=== PATIENT | female | born 1940 | race Caucasian/White ===

== ENCOUNTER 2020-08-06 13:47 | Observation (INO) | payer BC, MEDICARE ==
[2020-08-06] MEDS ORDERED: FUROSEMIDE 10 MG/ML 4 ML VIAL IV STA (14:26)
--- NOTE | 2020-08-06 14:33 | ED ---
General Adult HPI - General Chief complaint: Shortness of Breath Stated complaint: Dyspnea Time Seen by Provider: 08/06/20 14:09 Source: patient, RN notes reviewed Mode of arrival: wheelchair Limitations: no limitations - History of Present Illness Initial comments: patient is a pleasant 80-year-old female presenting to the emergency department with dyspnea. Patient went to her training lead today and was told she had congestive heart failure and to come to the emergency department. Patient does have some increased leg edema from chronic. No calf pain. Patient does have dyspnea aggressive over the past couple of months. Patient does have fatigue. Dyspnea worsens with exertion. No cough. No fever. No chest pain. Patient does also have orthopnea. - Related Data Home Medications Medication Instructions Recorded Confirmed Apixaban [Eliquis] 2.5 mg PO BID 08/06/20 08/06/20 Calcitriol [Rocaltrol] 0.25 mcg PO WE 08/06/20 08/06/20 Chlorthalidone 25 mg PO DAILY 08/06/20 08/06/20 Ergocalciferol (Vitamin D2) 50,000 unit PO WE 08/06/20 08/06/20 [Drisdol] Ipratropium/Albuter 20-100Mcg 1 puff INHALATION RT-QID 08/06/20 08/06/20 [Combivent Respimat 20-100Mcg Inhaler] Metoprolol Succinate [Toprol XL] 25 mg PO HS 08/06/20 08/06/20 Metoprolol Succinate [Toprol XL] 50 mg PO DAILY 08/06/20 08/06/20 PARoxetine [Paxil] 40 mg PO DAILY 08/06/20 08/06/20 Trospium Chloride 20 mg PO HS 08/06/20 08/06/20 amLODIPine [Norvasc] 5 mg PO BID 08/06/20 08/06/20 hydrALAZINE HCL 10 mg PO BID-W/MEALS 08/06/20 08/06/20 Allergies Allergy/AdvReac Type Severity Reaction Status Date / Time No Known Allergies Allergy Verified 08/06/20 15:39 Review of Systems ROS Statement: Those systems with pertinent positive or pertinent negative responses have been documented in the HPI. ROS Other: All systems not noted in ROS Statement are negative. Constitutional: Denies: fever Eyes: Denies: eye pain ENT: Denies: ear pain Respiratory: Reports: dyspnea. Denies: cough Cardiovascular: Denies: chest pain Endocrine: Reports: fatigue Gastrointestinal: Denies: abdominal pain Genitourinary: Denies: urgency Musculoskeletal: Denies: back pain Skin: Denies: rash Neurological: Denies: weakness Past Medical History Past Medical History: Atrial Flutter, Hypertension, Osteoarthritis (OA), Renal Disease Additional Past Medical History / Comment(s): stage 4 kidney disease. History of Any Multi-Drug Resistant Organisms: None Reported Past Surgical History: Section, Hysterectomy, Orthopedic Surgery Past Psychological History: No Psychological Hx Reported Smoking Status: Former smoker Past Alcohol Use History: None Reported Past Drug Use History: None Reported General Exam Limitations: no limitations General appearance: alert, in no apparent distress Head exam: Present: normocephalic Eye exam: Present: normal appearance Neck exam: Present: normal inspection Respiratory exam: Present: decreased breath sounds Cardiovascular Exam: Present: regular rate, irregular rhythm GI/Abdominal exam: Present: soft. Absent: tenderness Extremities exam: Present: pedal edema. Absent: calf tenderness Neurological exam: Present: alert Psychiatric exam: Present: normal affect, normal mood Skin exam: Present: normal color Course Vital Signs 08/06/20 08/06/20 13:58 15:05 Temperature 97.8 F Pulse Rate 109 H Pulse Rate [ 87 Diagnostic Assistant ] Respiratory 22 Rate Blood Pressure 160/86 O2 Sat by Pulse 97 Oximetry EKG Findings - EKG Comments: EKG Findings:: A. fib with a rate of 81. QRS 86. QT 354. QTC 411. Left axis. Septal Q waves. No acute ST change. Medical Decision Making - Medical Decision Making patient reevaluated and somewhat improved resting in bed. Patient is updated on results and plan. Case was discussed in detail with Dr. Pleitez, who will admit covered for Dr. Pisano. Patient states she also sees Dr. Hillman and Dr. escudero on. - Lab Data Result diagrams: 08/06/20 14:41 08/06/20 14:41 Lab Results 08/06/20 08/06/20 08/06/20 Range/Units 14:41 14:41 14:41 WBC 5.7 (3.8-10.6) k/uL RBC 3.73 L (3.80-5.40) m/uL Hgb 10.9 L (11.4-16.0) gm/dL Hct 33.8 L (34.0-46.0) % MCV 90.7 (80.0-100.0) fL MCH 29.3 (25.0-35.0) pg MCHC 32.3 (31.0-37.0) g/dL RDW 13.7 (11.5-15.5) % Plt Count 243 (150-450) k/uL MPV 8.1 Neutrophils % 63 % Lymphocytes % 24 % Monocytes % 7 % Eosinophils % 3 % Basophils % 1 % Neutrophils # 3.6 (1.3-7.7) k/uL Lymphocytes # 1.4 (1.0-4.8) k/uL Monocytes # 0.4 (0-1.0) k/uL Eosinophils # 0.2 (0-0.7) k/uL Basophils # 0.0 (0-0.2) k/uL PT 10.1 (9.0-12.0) sec INR 1.0 (<1.2) APTT 26.4 (22.0-30.0) sec Sodium 141 (137-145) mmol/L Potassium 4.1 (3.5-5.1) mmol/L Chloride 109 H (98-107) mmol/L Carbon Dioxide 24 (22-30) mmol/L Anion Gap 8 mmol/L BUN 39 H (7-17) mg/dL Creatinine 2.66 H (0.52-1.04) mg/dL Est GFR (CKD-EPI)AfAm 19 (>60 ml/min/1.73 sqM) Est GFR (CKD-EPI)NonAf 17 (>60 ml/min/1.73 sqM) Glucose 108 H (74-99) mg/dL Calcium 9.5 (8.4-10.2) mg/dL Total Bilirubin 0.6 (0.2-1.3) mg/dL AST 20 (14-36) U/L ALT 13 (4-34) U/L Alkaline Phosphatase 54 (38-126) U/L Troponin I (0.000-0.034) ng/mL NT-Pro-B Natriuret Pep pg/mL Total Protein 7.1 (6.3-8.2) g/dL Albumin 3.8 (3.5-5.0) g/dL 08/06/20 08/06/20 Range/Units 14:41 14:41 WBC (3.8-10.6) k/uL RBC (3.80-5.40) m/uL Hgb (11.4-16.0) gm/dL Hct (34.0-46.0) % MCV (80.0-100.0) fL MCH (25.0-35.0) pg MCHC (31.0-37.0) g/dL RDW (11.5-15.5) % Plt Count (150-450) k/uL MPV Neutrophils % % Lymphocytes % % Monocytes % % Eosinophils % % Basophils % % Neutrophils # (1.3-7.7) k/uL Lymphocytes # (1.0-4.8) k/uL Monocytes # (0-1.0) k/uL Eosinophils # (0-0.7) k/uL Basophils # (0-0.2) k/uL PT (9.0-12.0) sec INR (<1.2) APTT (22.0-30.0) sec Sodium (137-145) mmol/L Potassium (3.5-5.1) mmol/L Chloride (98-107) mmol/L Carbon Dioxide (22-30) mmol/L Anion Gap mmol/L BUN (7-17) mg/dL Creatinine (0.52-1.04) mg/dL Est GFR (CKD-EPI)AfAm (>60 ml/min/1.73 sqM) Est GFR (CKD-EPI)NonAf (>60 ml/min/1.73 sqM) Glucose (74-99) mg/dL Calcium (8.4-10.2) mg/dL Total Bilirubin (0.2-1.3) mg/dL AST (14-36) U/L ALT (4-34) U/L Alkaline Phosphatase (38-126) U/L Troponin I <0.012 (0.000-0.034) ng/mL NT-Pro-B Natriuret Pep 88400 pg/mL Total Protein (6.3-8.2) g/dL Albumin (3.5-5.0) g/dL - Radiology Data Radiology results: image reviewed (Chest x-ray shows mild cardiomegaly and eff usion, correlate for fluid overload.) Hilar soft tissue prominence.) Disposition Clinical Impression: Congestive heart failure Disposition: ADMITTED IP TO THIS HOSP Is patient prescribed a controlled substance at d/c from ED?: No Referrals: None,Stated [REFERRING] - 1-2 days Decision Time: 16:01
[2020-08-06 14:52] LABS: Basophils % (A) 1 %; Eosinophils # (A) 0.2 k/uL (0-0.7); Eosinophils % (A) 3 %; HCT 33.8 % (34.0-46.0); HGB 10.9 gm/dL (11.4-16.0); Lymphocytes # (A) 1.4 k/uL (1.0-4.8); Lymphocytes % (A) 24 %; MCH 29.3 pg (25.0-35.0); MCHC 32.3 g/dL (31.0-37.0); MCV 90.7 fL (80.0-100.0); Mean Platelet Volume 8.1; Monocytes # (A) 0.4 k/uL (0-1.0); Monocytes % (A) 7 %; Neutrophils # (A) 3.6 k/uL (1.3-7.7); Neutrophils % (A) 63 %; Platelet Count 243 k/uL (150-450); RBC 3.73 m/uL (3.80-5.40); RDW 13.7 % (11.5-15.5); WBC 5.7 k/uL (3.8-10.6)
[2020-08-06 15:08] LABS: Albumin 3.8 g/dL (3.5-5.0); Calcium 9.5 mg/dL (8.4-10.2); Potassium 4.1 mmol/L (3.5-5.1); Total Bilirubin 0.6 mg/dL (0.2-1.3); Total Protein 7.1 g/dL (6.3-8.2)
[2020-08-06 15:17] LABS: Partial Thromboplastin Time 26.4 sec (22.0-30.0); Prothrombin Time 10.1 sec (9.0-12.0)
--- NOTE | 2020-08-06 15:24 | XR ---
EXAMINATION TYPE: XR chest 2V DATE OF EXAM: 08/06/2020 COMPARISON: None HISTORY: 80 year-old female shortness of breath, difficulty breathing TECHNIQUE: PA and lateral views FINDINGS: Heart mildly enlarged. Consolidation/ectasia of the thoracic aorta. There is right perihilar prominen ce that could be projectional. Trace effusion on the right. IMPRESSION: 1. Mild cardiomegaly. Trace right effusion. Correlate for any fluid overload state. 2. Right perihilar soft tissue prominence. Large right main pulmonary artery (in the setting of pulmo nary arterial hypertension) or underlying mass/lymphadenopathy are differential considerations. Cross -sectional imaging can further assess.
[2020-08-06] MEDS ORDERED: NALOXONE 0.4 MG/ML 1 ML VIAL IV PRN (16:02)
[2020-08-06] MEDS ORDERED: ASPIRIN 325 MG TAB PO STA (16:04)
--- NOTE | 2020-08-06 16:37 | P.HPIM ---
History of Present Illness 74-year-old doesn't female was sent in the from cardiology's office for gram heart failure. Patient doesn't have diagnosis of heart failure in the past. Patient does have history of emphysema. Used to smoke more than 25 years ago. Was having progressive shortness of breath going on for gram few months denied any significant orthopnea proximal nocturnal dyspnea. Patient says she has chronic kidney disease stage 4-5 and supposed to be started on hemodialysis patient was also having progressive pitting pedal edema chest x-ray did show pulmonary edema with the elevated BNP of around 10,000 patient was started on IV Lasix 40 every 8 hourly may need to increase the dose to 60 every 8 considering her renal function. Patient was recently diagnosed with atrial fibrillation was started on low-dose of was in the beta daniel for that. Patient is presently rate controlled but in A. fib Review of Systems REVIEW OF SYSTEMS: CONSTITUTIONAL: No fever, no malaise, no fatigue. HEENT: No recent visual problems or hearing problems. Denied any sore throat. CARDIOVASCULAR: No chest pain, orthopnea, PND, no palpitations, no syncope. PULMONARY: no hemoptysis. GASTROINTESTINAL: No diarrhea, no nausea, no vomiting, no abdominal pain. NEUROLOGICAL: No headaches, no weakness, no numbness. HEMATOLOGICAL: Denies any bleeding or petechiae. GENITOURINARY: Denies any burning micturition, frequency, or urgency. MUSCULOSKELETAL/RHEUMATOLOGICAL: Denies any joint pain, swelling, or any muscle pain. ENDOCRINE: Denies any polyuria or polydipsia. The rest of the 14-point review of systems is negative. Past Medical History Past Medical History: Atrial Flutter, Hypertension, Osteoarthritis (OA), Renal Disease Additional Past Medical History / Comment(s): stage 4 kidney disease. History of Any Multi-Drug Resistant Organisms: None Reported Past Surgical History: Section, Hysterectomy, Orthopedic Surgery Past Psychological History: No Psychological Hx Reported Smoking Status: Former smoker Past Alcohol Use History: None Reported Past Drug Use History: None Reported Medications and Allergies Home Medications Medication Instructions Recorded Confirmed Type Apixaban [Eliquis] 2.5 mg PO BID 08/06/20 08/06/20 History Calcitriol [Rocaltrol] 0.25 mcg PO WE 08/06/20 08/06/20 History Chlorthalidone 25 mg PO DAILY 08/06/20 08/06/20 History Ergocalciferol (Vitamin D2) 50,000 unit PO WE 08/06/20 08/06/20 History [Drisdol] Ipratropium/Albuter 20-100Mcg 1 puff INHALATION RT-QID 08/06/20 08/06/20 History [Combivent Respimat 20-100Mcg Inhaler] Metoprolol Succinate [Toprol XL] 25 mg PO HS 08/06/20 08/06/20 History Metoprolol Succinate [Toprol XL] 50 mg PO DAILY 08/06/20 08/06/20 History PARoxetine [Paxil] 40 mg PO DAILY 08/06/20 08/06/20 History Trospium Chloride 20 mg PO HS 08/06/20 08/06/20 History amLODIPine [Norvasc] 5 mg PO BID 08/06/20 08/06/20 History hydrALAZINE HCL 10 mg PO BID-W/MEALS 08/06/20 08/06/20 History Allergies Allergy/AdvReac Type Severity Reaction Status Date / Time No Known Allergies Allergy Verified 08/06/20 15:39 Physical Exam Vitals: Vital Signs Temp Pulse Pulse Resp BP Pulse Ox 08/06/20 15:05 87 08/06/20 13:58 97.8 F 109 H 22 160/86 97 Intake and Output 08/06/20 08/06/20 08/06/20 06:59 14:59 22:59 Other: Weight 98.883 kg PHYSICAL EXAMINATION: GENERAL: The patient is alert and oriented x3, not in any acute distress. Well developed, well nourished. HEENT: Pupils are round and equally reacting to light. EOMI. No scleral icterus. No conjunctival pallor. Normocephalic, atraumatic. No pharyngeal erythema. No thyromegaly. CARDIOVASCULAR: S1 and S2 present. No murmurs, rubs, or gallops. Does have JVD PULMONARY: Chest is clear to auscultation, no wheezing or crackles. ABDOMEN: Soft, nontender, nondistended, normoactive bowel sounds. No palpable organomegaly. MUSCULOSKELETAL: No joint swelling or deformity. EXTREMITIES: No cyanosis, clubbing, does have 2+ pitting pedal edema NEUROLOGICAL: Gross neurological examination did not reveal any focal deficits. SKIN: No rashes. Results CBC & Chem 7: 08/06/20 14:41 08/06/20 14:41 Labs: Abnormal Lab Results - Last 24 Hours (Table) 08/06/20 08/06/20 Range/Units 14:41 14:41 RBC 3.73 L (3.80-5.40) m/uL Hgb 10.9 L (11.4-16.0) gm/dL Hct 33.8 L (34.0-46.0) % Chloride 109 H (98-107) mmol/L BUN 39 H (7-17) mg/dL Creatinine 2.66 H (0.52-1.04) mg/dL Glucose 108 H (74-99) mg/dL Assessment and Plan Plan: -Possible congestive heart failure: Ejection fraction is not known. E chocardiogram will be obtained. Patient is in acute exacerbation patient was started on Lasix and increase the dose of that Lasix. -Chronic kidney disease stage V, etiology is not known nephrology was consulted. -Atrial fibrillation/flutter patient appears to be in chronic A. fib and he with anticoagulation continue with beta daniel -Hypertension -Obesity -History of COPD doesn't appear to be in acute exacerbation at this time -Depression
[2020-08-06] MEDS: FUROSEMIDE 10 MG/ML 4 ML VIAL IV SCH ×2 (16:51→23:42)
--- NOTE | 2020-08-06 18:05 | CT ---
EXAMINATION TYPE: CT chest abdomen wo con DATE OF EXAM: 08/06/2020 COMPARISON: None HISTORY: hilar mass CT DLP: 616.1 mGycm Automated exposure control for dose reduction was used. Images were obtained from the thoracic inlet to the mid pelvis with no contrast. The lungs are clear of consolidation. There is no evidence of a pulmonary mass. There is mild subsegm ental atelectasis right lung base. There is no pleural effusion. Heart is enlarged. There is no peric ardial effusion. There are large pulmonary arteries. There is coronary artery calcification. The asce nding aorta measures 4.2 cm. Liver and spleen appear intact. Stomach is intact. The bile ducts are not dilated. There is 1.5 cm ga llstone. There is no evidence of pancreatic mass. Kidneys show no evidence of hydronephrosis there is however a possible 3 mm calculus at the left uret eropelvic junction. Ureters are not dilated. There is no retroperitoneal adenopathy. There is no asci charlie. There is no sign of a bowel obstruction. Appendix appears normal. There is hypertrophic spurring in the thoracic and lumbar spine. There is no significant compression deformity. There is thoracolumbar dextroscoliotic mild deformity. Sternum is intact. The ribs appear intact. Shoulder joints appear intact. Impression mild aneurysm of the ascending aorta. Large pulmonary arteries that account for the large size of the pulmonary kathe on the chest x-ray today. No hilar mass. Cardiomegaly. Atherosclerotic vascular disease. Possible calculus at the left ureteropelvic junction without evidence of obstruction of the left kidn ey. Mild subsegmental atelectasis at the lung bases.
[2020-08-06] MEDS: NITROGLYCERIN OINT 1 INCH/GM PACKET TOPICAL SCH ×2 (19:54→23:14)
[2020-08-06] MEDS: APIXABAN 2.5 MG TABLET PO SCH (19:59)
[2020-08-06] MEDS: amLODIPine 5 MG TAB PO SCH (20:00)
[2020-08-06] MEDS ORDERED: TROSPIUM CHLORIDE 20 MG TABLET PO SCH (21:00)
[2020-08-06] MEDS ORDERED: METOPROLOL SUCCINATE (ER) 25 MG TAB.ER.24H PO SCH (21:00)
[2020-08-06] MEDS: IPRATROPIUM-ALBUTEROL 3 ML NEB INHALATION SCH (21:40)
[2020-08-07 04:24] VITALS: TEMP 98
[2020-08-07] MEDS: IPRATROPIUM-ALBUTEROL 3 ML NEB INHALATION SCH ×2 (06:00→09:05)
--- NOTE | 2020-08-07 07:55 | P.CRDCN ---
History of Present Illness Consult date: 08/07/20 Chief complaint: Shortness of breath History of present illness: This is a very pleasant 80-year-old female patient who [facility] with a past medical history significant for diabetes and hypertension and end stage renal disease in process of having dialysis was admitted directly from the office for further evaluation and management of heart failure. The patient has been experiencing shortness of breath which has progressed for the last several days. Beside that she has progressive bilateral lower extremities edema. She gained weight but she is not quite sure home rebound she weight. No symptoms of orthopnea or paroxysmal sure not dyspnea. No dizziness or lightheadedness or any feeling of heart racing or fluttering or syncope. On examination she was found to have bilateral lower except is pitting edema. Subsequently she was sent to the hospital. The chest x-ray showed findings consistent with CHF. The BNP came in to be elevated at 12,000. The creatinine is elevated. The patient is known to have permanent atrial fibrillation and she was on oral anticoagulation. She is also on beta daniel. She was started on Lasix IV and she diuresed quite well overnight and the edema has improved and overall her shortness of breath has improved. No prior history of heart failure. No history of coronary artery disease. She is in process of getting an echocardiogram to establish LV function. At this point we'll continue the current medical regimen including the current dose of Lasix IV with continuous monitoring the kidney function and electrolytes and follow-up with the patient. Past Medical History Past Medical History: Atrial Flutter, COPD, Hypertension, Osteoarthritis (OA), Renal Disease Additional Past Medical History / Comment(s): stage 4 kidney disease. History of Any Multi-Drug Resistant Organisms: None Reported Past Surgical History: Section, Hysterectomy, Orthopedic Surgery Past Psychological History: No Psychological Hx Reported Smoking Status: Former smoker Past Alcohol Use History: None Reported Past Drug Use History: None Reported Medications and Allergies Home Medications Medication Instructions Recorded Confirmed Type Apixaban [Eliquis] 2.5 mg PO BID 08/06/20 08/06/20 History Calcitriol [Rocaltrol] 0.25 mcg PO WE 08/06/20 08/06/20 History Chlorthalidone 25 mg PO DAILY 08/06/20 08/06/20 History Ergocalciferol (Vitamin D2) 50,000 unit PO WE 08/06/20 08/06/20 History [Drisdol] Ipratropium/Albuter 20-100Mcg 1 puff INHALATION RT-QID 08/06/20 08/06/20 History [Combivent Respimat 20-100Mcg Inhaler] Metoprolol Succinate [Toprol XL] 25 mg PO HS 08/06/20 08/06/20 History Metoprolol Succinate [Toprol XL] 50 mg PO DAILY 08/06/20 08/06/20 History PARoxetine [Paxil] 40 mg PO DAILY 08/06/20 08/06/20 History Trospium Chloride 20 mg PO HS 08/06/20 08/06/20 History amLODIPine [Norvasc] 5 mg PO BID 08/06/20 08/06/20 History hydrALAZINE HCL 10 mg PO BID-W/MEALS 08/06/20 08/06/20 History Allergies Allergy/AdvReac Type Severity Reaction Status Date / Time No Known Allergies Allergy Verified 08/06/20 15:39 Physical Exam Vitals: Vital Signs Temp Pulse Pulse Resp BP BP Pulse Ox 08/07/20 03:30 98 F 92 17 124/75 95 08/06/20 19:50 97.8 F 81 20 124/80 94 L 08/06/20 17:16 97.7 F 88 16 134/77 96 08/06/20 15:05 87 08/06/20 13:58 97.8 F 109 H 22 160/86 97 Intake and Output 08/06/20 08/07/20 08/07/20 22:59 06:59 14:59 Other: Voiding Method Toilet Toilet # Voids 5 2 Weight 98.883 kg - Constitutional General appearance: no acute distress - Respiratory Respiratory: bilateral: diminished, rales - Cardiovascular Rhythm: irregularly irregular Heart sounds: normal: S1, S2 Results 08/06/20 14:41 08/06/20 14:41 Cardiac Enzymes 08/06/20 08/06/20 Range/Units 14:41 14:41 AST 20 (14-36) U/L Troponin I <0.012 (0.000-0.034) ng/mL Coagulation 08/06/20 Range/Units 14:41 PT 10.1 (9.0-12.0) sec APTT 26.4 (22.0-30.0) sec CBC 08/06/20 Range/Units 14:41 WBC 5.7 (3.8-10.6) k/uL RBC 3.73 L (3.80-5.40) m/uL Hgb 10.9 L (11.4-16.0) gm/dL Hct 33.8 L (34.0-46.0) % Plt Count 243 (150-450) k/uL Comprehensive Metabolic Panel 08/06/20 Range/Units 14:41 Sodium 141 (137-145) mmol/L Potassium 4.1 (3.5-5.1) mmol/L Chloride 109 H (98-107) mmol/L Carbon Dioxide 24 (22-30) mmol/L BUN 39 H (7-17) mg/dL Creatinine 2.66 H (0.52-1.04) mg/dL Glucose 108 H (74-99) mg/dL Calcium 9.5 (8.4-10.2) mg/dL AST 20 (14-36) U/L ALT 13 (4-34) U/L Alkaline Phosphatase 54 (38-126) U/L Total Protein 7.1 (6.3-8.2) g/dL Albumin 3.8 (3.5-5.0) g/dL Current Medications Generic Name Dose Route Start Last Admin Trade Name Freq PRN Reason Stop Dose Admin Albuterol/Ipratropium 3 ml 08/06/20 20:00 08/07/20 06:00 Ipratropium-Albuterol 3 Ml Neb INHALATION Not Given RT-Q6H [facility] Amlodipine Besylate 5 mg 08/06/20 21:00 08/06/20 20:00 Amlodipine 5 Mg Tab PO 5 mg BID RORY Administration Apixaban 2.5 mg 08/06/20 21:00 08/06/20 19:59 Apixaban 2.5 Mg Tablet PO 2.5 mg BID RORY Administration Aspirin 325 mg 08/07/20 09:00 Aspirin 325 Mg Tab PO DAILY RORY Calcitriol 0.25 mcg 08/11/20 09:00 Calcitriol 0.25 Mcg Cap PO WE RORY Ergocalciferol 50,000 unit 08/11/20 09:00 Ergocalciferol 50,000 Unit Cap PO WE RORY Furosemide 40 mg 08/06/20 16:15 08/06/20 23:42 Furosemide 10 Mg/Ml 4 Ml Vial IV 40 mg Q8H RORY Administration Metoprolol Succinate 25 mg 08/06/20 21:00 08/06/20 19:59 Metoprolol Succinate (Er) 25 Mg Tab.Er.24h PO 25 mg HS RORY Administration Metoprolol Succinate 50 mg 08/07/20 09:00 Metoprolol Succinate (Er) 50 Mg Tab.Er.24h PO DAILY RORY Naloxone HCl 0.2 mg 08/06/20 16:02 Naloxone 0.4 Mg/Ml 1 Ml Vial IV Q2M PRN Opioid Reversal Nitroglycerin 1 inch 08/06/20 18:00 08/06/20 23:14 Nitroglycerin Oint 1 Inch/Gm Packet TOPICAL Not Given QID RORY Paroxetine HCl 40 mg 08/07/20 09:00 Paroxetine 20 Mg Tab PO DAILY RORY Trospium 20 mg 08/06/20 21:00 08/06/20 19:59 Trospium Chloride 20 Mg Tablet PO 20 mg HS RORY Administration Intake and Output 08/06/20 08/07/20 08/07/20 22:59 06:59 14:59 Other: Voiding Method Toilet Toilet # Voids 5 2 Weight 98.883 kg 08/06/20 14:41 08/06/20 14:41 Assessment and Plan Assessment: Assessment #1 congestive heart failure exacerbation of unknown etiology, acute on chronic #2 permanent atrial fibrillation was controlled heart rate #3 end stage renal disease #4 hypertension #5 diabetes Plan #1 continue the current dose of Lasix IV #2 monitor the kidney function and electrolytes #3 follow-up on the echocardiogram #4 follow-up with the patient
[2020-08-07] MEDS: APIXABAN 2.5 MG TABLET PO SCH (08:37)
[2020-08-07] MEDS: FUROSEMIDE 10 MG/ML 4 ML VIAL IV SCH (08:37)
[2020-08-07] MEDS: amLODIPine 5 MG TAB PO SCH (08:37)
[2020-08-07] MEDS: NITROGLYCERIN OINT 1 INCH/GM PACKET TOPICAL SCH (08:37)
[2020-08-07 08:52] VITALS: BP 122/77; RESP 16
[2020-08-07] MEDS ORDERED: PARoxetine 20 MG TAB PO SCH (09:00)
[2020-08-07] MEDS ORDERED: METOPROLOL SUCCINATE (ER) 50 MG TAB.ER.24H PO SCH (09:00)
[2020-08-07] MEDS ORDERED: ASPIRIN 325 MG TAB PO SCH (09:00)
[2020-08-07 09:20] VITALS: PULSE 100
[2020-08-07 09:56] LABS: Calcium 9.5 mg/dL (8.4-10.2); Potassium 4.3 mmol/L (3.5-5.1)
[2020-08-07 12:21] VITALS: BMI 37.4
--- NOTE | 2020-08-07 12:59 | P.NPCON ---
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 At home she was on chlorthalidone 25 mg a day. Edema started to appear a few days ago. No chest pain no fever chills cough. No nausea vomiting appetite is great Has any dizziness sweating. The acidosis is significant for atrial fibrillation, COPD, history of cardiac stents or heart attack No history of strokes She was recently seen in our hospital and her creatinine has gone up into the 3 range. Workup here and shows a chest x-ray with some prominence over the right hilum a computed tomography scan was therefore done there is no congestive heart failure . There is a mild ascending aortic aneurysm. Further a left ureteropelvic junction 3 mm nonobstructing calculus is seen although patient has no history of kidney stones Past Medical History Past Medical History: Atrial Flutter, COPD, Hypertension, Osteoarthritis (OA), Renal Disease Additional Past Medical History / Comment(s): stage 4 kidney disease. History of Any Multi-Drug Resistant Organisms: None Reported Past Surgical History: Section, Hysterectomy, Orthopedic Surgery Past Psychological History: No Psychological Hx Reported Smoking Status: Former smoker Past Alcohol Use History: None Reported Past Drug Use History: None Reported Medications and Allergies Home Medications Medication Instructions Recorded Confirmed Type Apixaban [Eliquis] 2.5 mg PO BID 08/06/20 08/06/20 History Calcitriol [Rocaltrol] 0.25 mcg PO WE 08/06/20 08/06/20 History Chlorthalidone 25 mg PO DAILY 08/06/20 08/06/20 History Ergocalciferol (Vitamin D2) 50,000 unit PO WE 08/06/20 08/06/20 History [Drisdol] Ipratropium/Albuter 20-100Mcg 1 puff INHALATION RT-QID 08/06/20 08/06/20 History [Combivent Respimat 20-100Mcg Inhaler] Metoprolol Succinate [Toprol XL] 25 mg PO HS 08/06/20 08/06/20 History Metoprolol Succinate [Toprol XL] 50 mg PO DAILY 08/06/20 08/06/20 History PARoxetine [Paxil] 40 mg PO DAILY 08/06/20 08/06/20 History Trospium Chloride 20 mg PO HS 08/06/20 08/06/20 History amLODIPine [Norvasc] 5 mg PO BID 08/06/20 08/06/20 History hydrALAZINE HCL 10 mg PO BID-W/MEALS 08/06/20 08/06/20 History Allergies Allergy/AdvReac Type Severity Reaction Status Date / Time No Known Allergies Allergy Verified 08/06/20 15:39 Physical Exam Vitals: Vital Signs Temp Pulse Pulse Resp BP BP Pulse Ox 08/07/20 09:20 100 08/07/20 09:05 96 08/07/20 08:53 98 16 08/07/20 08:51 98 F 98 16 122/77 93 L 08/07/20 03:30 98 F 92 17 124/75 95 08/06/20 19:50 97.8 F 81 20 124/80 94 L 08/06/20 17:16 97.7 F 88 16 134/77 96 08/06/20 15:05 87 08/06/20 13:58 97.8 F 109 H 22 160/86 97 Intake and Output 08/06/20 08/07/20 08/07/20 22:59 06:59 14:59 Other: Voiding Method Toilet Toilet Toilet # Voids 5 2 2 Weight 98.883 kg 98.883 kg On examination she is awake alert oriented comfortable HEENT exam no JVP neck is supple no facial asymmetry Lungs are clear to auscultation good air entry bilaterally. Heart sounds are unremarkable no murmur rub gallop. She is in atrial fibrillation. Abdomen soft nontender Extremity exam was trace edema Neuro logically awake alert oriented Results - Lab Results Most recent lab results Calcium 9.5 mg/dL (8.4-10.2) 08/07/20 08:56 08/06/20 14:41 08/07/20 08:56 Assessment and Plan Assessment: Impression 1. Chronic kidney disease stage IV, nephrosclerosis. Creatinine is 2.7 to February for his 16 mL per minute. She has had higher creatinines in the office at 3.3 recently 2. Admitted with congestive heart failure although chest x-ray is not suggestive but she had edema and shortness of breath which is improved with diuretics. 3. History of hypertension controlled 4. Left ureteropelvic junction 3 mm nonobstructing and asymptomatic nephrolithiasis. Not known to be having any kidney stone the past 5. Small ascending aortic aneurysm based on CAT scan. Recommendation . 1. Start on Lasix 40 by mouth twice a day she can be discharged to be followed up in the office in 3-4 days with labs. 2. Discontinue the chlorthalidone as she is on Lasix.
--- NOTE | 2020-08-07 13:15 | P.DS ---
Providers Date of admission: 08/06/20 16:26 Attending physician: Adi Pleitez Consults: 08/06/20 16:02 Consult Physician Urgent Consulting Provider: Mary Baig Consult Reason/Comments: chf Do you want consulting provider notified?: Yes Consult Physician Urgent Consulting Provider: Angelique Hillman Consult Reason/Comments: crf Do you want consulting provider notified?: Yes Primary care physician: Keaton Servin [facility] Course: 74-year-old doesn't female was sent in the from cardiology's office for gram heart failure. Patient doesn't have diagnosis of heart failure in the past. Patient does have history of emphysema. Used to smoke more than 25 years ago. Was having progressive shortness of breath going on for gram few months denied any significant orthopnea proximal nocturnal dyspnea. Patient says she has chronic kidney disease stage 4-5 and supposed to be started on hemodialysis patient was also having progressive pitting pedal edema chest x-ray did show pulmonary edema with the elevated BNP of around 10,000 patient was started on IV Lasix 40 every 8 hourly may need to increase the dose to 60 every 8 considering her renal function. Patient was recently diagnosed with atrial fibrillation was started on low-dose of was in the beta daniel for that. Patient is presently rate controlled but in A. fib 08/07/2020 Patient's edema improved was pretty status improved although we do not have any cardiac exam available patient is not willing to stay in the hospital, wanted to go home today. Patient will be discharged on 40 mg of Lasix as recommended by nephrology nephrology will follow up with the patient on Sunday. PHYSICAL EXAMINATION: GENERAL: The patient is alert and oriented x3, not in any acute distress. Well developed, well nourished. HEENT: Pupils are round and equally reacting to light. EOMI. No scleral icterus. No conjunctival pallor. Normocephalic, atraumatic. No pharyngeal erythema. No thyromegaly. CARDIOVASCULAR: S1 and S2 present. No murmurs, rubs, or gallops. no JVD PULMONARY: Chest is clear to auscultation, no wheezing or crackles. ABDOMEN: Soft, nontender, nondistended, normoactive bowel sounds. No palpable organomegaly. MUSCULOSKELETAL: No joint swelling or deformity. EXTREMITIES: No cyanosis, clubbing, pedal edema improved significantly. NEUROLOGICAL: Gross neurological examination did not reveal any focal deficits. SKIN: No rashes. Assessment and Plan Plan: -Possible congestive heart failure: Ejection fraction is not known. Echocardiogram pending patient has improved the failure unknown whether patient has systolic dysfunction or diastolic dysfunction. patient will be discharged today on oral Lasix of 40 mg as mentioned above -Chronic kidney disease stage V, etiology is not known nephrologyrelated the patient. -Atrial fibrillation/flutter patient appears to be in chronic A. fib and he with anticoagulation continue with beta daniel -Hypertension -Obesity -History of COPD doesn't appear to be in acute exacerbation at this time -Depression Plan - Discharge Summary Discharge Rx Participant: No New Discharge Prescriptions: New Furosemide [Lasix] 40 mg PO DAILY #30 tablet Continue amLODIPine [Norvasc] 5 mg PO BID Ergocalciferol (Vitamin D2) [Drisdol] 50,000 unit PO WE Apixaban [Eliquis] 2.5 mg PO BID Trospium Chloride 20 mg PO HS PARoxetine [Paxil] 40 mg PO DAILY Ipratropium/Albuter 20-100Mcg [Combivent Respimat 20-100Mcg Inhaler] 1 puff INHALATION RT-QID Metoprolol Succinate [Toprol XL] 25 mg PO HS Metoprolol Succinate [Toprol XL] 50 mg PO DAILY Calcitriol [Rocaltrol] 0.25 mcg PO WE Discontinued Chlorthalidone 25 mg PO DAILY hydrALAZINE HCL 10 mg PO BID-W/MEALS Discharge Medication List Apixaban [Eliquis] 2.5 mg PO BID 08/06/20 [History] Calcitriol [Rocaltrol] 0.25 mcg PO WE 08/06/20 [History] Ergocalciferol (Vitamin D2) [Drisdol] 50,000 unit PO WE 08/06/20 [History] Ipratropium/Albuter 20-100Mcg [Combivent Respimat 20-100Mcg Inhaler] 1 puff INHALATION RT-QID 08/06/20 [History] Metoprolol Succinate [Toprol XL] 25 mg PO HS 08/06/20 [History] Metoprolol Succinate [Toprol XL] 50 mg PO DAILY 08/06/20 [History] PARoxetine [Paxil] 40 mg PO DAILY 08/06/20 [History] Trospium Chloride 20 mg PO HS 08/06/20 [History] amLODIPine [Norvasc] 5 mg PO BID 08/06/20 [History] Furosemide [Lasix] 40 mg PO DAILY #30 tablet 08/07/20 [Rx] Follow up Appointment(s)/Referral(s): Ratna Townsend MD [STAFF PHYSICIAN] - 3 Days Keaton Pisano MD [Primary Care Provider] - 3 Days Mary Baig MD [STAFF PHYSICIAN] - 1 Week Discharge Disposition: HOME SELF-CARE
--- NOTE | 2020-08-07 15:00 | ECHOF ---
Referral Reason:Congestive heart failure MEASUREMENTS -------- HEIGHT: 162.6 cm WEIGHT: 98.4 kg BP: 124/75 RVIDd: 3.2 cm (< 3.3) IVSd: 1.3 cm (0.6 - 1.1) LVIDd: 3.9 cm (3.9 - 5.3) LVPWd: 1.3 cm (0.6 - 1.1) IVSs: 1.6 cm LVIDs: 2.8 cm LVPWs: 1.6 cm LA Diam: 3.7 cm (2.7 - 3.8) Ao Diam: 3.4 cm (2.0 - 3.7) AV Cusp: 1.9 cm (1.5 - 2.6) MV EXCURSION: 11.800 mm (> 18.000) MV EF SLOPE: 71 mm/s (70 - 150) EPSS: 0.5 cm RAP: 15.00 mmHg RVSP: 41.19 mmHg FINDINGS -------- Atrial fibrillation. This was a technically adequate study. The left ventricular size is normal. There is mild concentric left ventricular hypertrophy. Overa ll left ventricular systolic function is low-normal with, an EF between 50 - 55 %. The right ventricle is normal in size. The left atrial size is normal. The right atrium is normal in size. Interatrial and interventricular septum intact. The aortic valve is trileaflet and appears structurally normal. Mild mitral annular calcification present. Mild mitral regurgitation is present. Mild tricuspid regurgitation present. There is mild pulmonary hypertension. The right ventricular systolic pressure, as measured by Doppler, is 41.19mmHg. The pulmonic valve was not well visualized. The aortic root size is normal. The inferior vena cava is dilated with poor inspiratory collapse which is consistent with estimated r ight atrial pressure of 15 mmHg. There is no pericardial effusion. CONCLUSIONS -------- 1. The left ventricular size is normal. 2. There is mild concentric left ventricular hypertrophy. 3. Overall left ventricular systolic function is low-normal with, an EF between 50 - 55 %. 4. Mild mitral annular calcification present. 5. Mild mitral regurgitation is present. 6. Mild tricuspid regurgitation present. 7. There is mild pulmonary hypertension. 8. The right ventricular systolic pressure, as measured by Doppler, is 41.19mmHg. 9. The inferior vena cava is dilated with poor inspiratory collapse which is consistent with estimate d right atrial pressure of 15 mmHg. 10. There is no pericardial effusion. GORE CUTTER: Ying Cool RDCS
[2020-08-07] MEDS ORDERED: FUROSEMIDE 10 MG/ML 10 ML VIAL IV SCH (16:00)
[2020-08-11] MEDS ORDERED: ERGOCALCIFEROL 50,000 UNIT CAP PO SCH (09:00)
== END 2020-08-07 14:40 | disposition home or self-care (01) ==
LOC: EC 13:47 → SUPCPDRO 13:47 → 3NCARDOBS 16:26
PROVIDERS: ADMIT Internal Medicine; ATTEND Internal Medicine
DX: J81.1 Chronic pulmonary edema (principal); I12.0 Hypertensive chronic kidney disease with stage 5 chronic kidney disease or end stage renal disease; N18.6 End stage renal disease; E11.22 Type 2 diabetes mellitus with diabetic chronic kidney disease; I48.21 Permanent atrial fibrillation; J43.9 Emphysema, unspecified; E87.0 Hyperosmolality and hypernatremia; I71.2 Thoracic aortic aneurysm, without rupture; N20.2 Calculus of kidney with calculus of ureter; F32.9 Major depressive disorder, single episode, unspecified; E66.9 Obesity, unspecified; Z68.37 Body mass index [BMI] 37.0-37.9, adult; I48.92 Unspecified atrial flutter; M19.90 Unspecified osteoarthritis, unspecified site; Z79.01 Long term (current) use of anticoagulants; Z79.899 Other long term (current) drug therapy; Z87.891 Personal history of nicotine dependence; Z90.710 Acquired absence of both cervix and uterus; I25.2 Old myocardial infarction; Z95.5 Presence of coronary angioplasty implant and graft; Z98.891 History of uterine scar from previous surgery; Z98.890 Other specified postprocedural states
CPT/HCPCS: 96376 ×2; 96374; 99285; 36415; 94640; 93005; 93306; 83880; 80053; 80048; 84484; 85025; 85610; 85730; 71046; 71250; 74150; G0378 ×2; J1940 ×2

== ENCOUNTER 2020-10-14 06:11 | Day surgery (SDC) | payer MEDICARE ==
[2020-10-08 15:37] VITALS: BMI 35.6
[~2020-10-14 06:11] MED LIST: LACTATED RINGERS 1,000 ML IV SCH; SODIUM CHLORIDE 0.9% 1,000 ML IV SCH
[2020-10-14 06:39] VITALS: TEMP 97.4
[2020-10-14] MEDS ORDERED: PROPOFOL 10 MG/ML 20 ML VIAL IV ONE (07:28)
[2020-10-14] MEDS ORDERED: TROSPIUM CHLORIDE 20 MG TABLET PO PRN (07:53)
[2020-10-14] MEDS ORDERED: SODIUM CHLORIDE 0.9% 1,000 ML IV SCH (08:00)
--- NOTE | 2020-10-14 08:16 | CE ---
CARDIAC ELECTROPHYSIOLOGY REPORT CARDIOVERSION PROCEDURE NOTE: INDICATION: Atrial fibrillation. PROCEDURE: After explaining the procedure to the patient, its risks and the complications and after obtaining sedated state per anesthesia department, a synchronized biphasic cardioversion using 200 joules was performed with presybeterian of normal sinus rhythm. There was no immediate complication. LISA / ELVIRA: [id number] /
[2020-10-14] MEDS ORDERED: METOPROLOL SUCCINATE (ER) 50 MG TAB.ER.24H PO SCH (09:00)
[2020-10-14] MEDS ORDERED: APIXABAN 2.5 MG TABLET PO SCH (09:00)
[2020-10-14] MEDS ORDERED: AMIODARONE 200 MG TAB PO SCH ×2 (09:00)
[2020-10-14] MEDS ORDERED: FUROSEMIDE 40 MG TAB PO SCH (09:00)
[2020-10-14] MEDS ORDERED: PARoxetine 20 MG TAB PO SCH (09:00)
[2020-10-14] MEDS ORDERED: amLODIPine 5 MG TAB PO SCH (09:00)
[2020-10-14 18:28] VITALS: BP 133/65; PULSE 62; RESP 18
--- NOTE | 2020-10-18 10:50 | CDI ---
Date: 10.18.20 CDS/Street Light Servicer Supervisor Name: Martine Knapp Phone: If any questions, call Rabia Rodriguez Mosquito Sprayer at [phone] Patient Name: Beronica Castillo Admit Date 10.14.20 Discharge Date: 10.14.20 ATTENTION: The [facility] Coding Staff appreciate your assistance in clarifying documentation. Please respond to the clarification below the line at the bottom and electronically sign. The [facility] Coding staff will review the response and follow-up if needed. Please note: Queries are made part of the Legal Health Record. If you have any questions, please contact the Mosquito Sprayer. Dear Dr. Baig In order to code to the greatest specificity and for the greatest reimbursement I need the following information: In your H&P, under the impression, you have documented CKD stage 4, but on the anesthesia record they have documented ESRD. Please clarify the stage of the CKD. stage 4 Thank you for your kind consideration. MTDD
[2020-10-20] MEDS ORDERED: ERGOCALCIFEROL 1,250 MCG (50,000 IU) CAPSULE PO SCH (09:00)
== END 2020-10-14 09:30 | disposition home or self-care (01) ==
LOC: CATHCVL 06:11
PROVIDERS: ATTEND Internal Medicine Interventional Cardiology
DX: I48.11 Longstanding persistent atrial fibrillation (principal); I13.0 Hypertensive heart and chronic kidney disease with heart failure and stage 1 through stage 4 chronic kidney disease, or unspecified chronic kidney disease; N18.4 Chronic kidney disease, stage 4 (severe); I50.9 Heart failure, unspecified; J44.9 Chronic obstructive pulmonary disease, unspecified; E66.9 Obesity, unspecified; I48.92 Unspecified atrial flutter; F32.9 Major depressive disorder, single episode, unspecified; Z98.890 Other specified postprocedural states; Z79.01 Long term (current) use of anticoagulants; Z79.899 Other long term (current) drug therapy; Z79.51 Long term (current) use of inhaled steroids; Z88.8 Allergy status to other drugs, medicaments and biological substances; Z88.1 Allergy status to other antibiotic agents; Z87.891 Personal history of nicotine dependence; Z68.34 Body mass index [BMI] 34.0-34.9, adult; Z90.710 Acquired absence of both cervix and uterus
CPT/HCPCS: 92960; J2704

== ENCOUNTER 2020-12-01 11:21 | Day surgery (SDC) | payer MEDICARE ==
[2020-11-29 13:27] VITALS: BMI 34.8
[~2020-12-01 11:21] MED LIST changes: +LIDOCAINE 1% (10MG/ML) FOR IV START INTRADERMA PRN; +ONDANSETRON 4 MG/2 ML VIAL IVP PRN; -SODIUM CHLORIDE 0.9% 1,000 ML IV SCH
[2020-12-01 11:57] VITALS: TEMP 97.9
[2020-12-01] MEDS ORDERED: SODIUM CHLORIDE 0.9% 1,000 ML IV ONE (12:16)
[2020-12-01] MEDS ORDERED: ONDANSETRON 4 MG/2 ML VIAL IVP ONE (12:17)
[2020-12-01] MEDS ORDERED: DEXAMETHASONE SOD PHOSPHATE 4 MG/ML 1 ML VIAL IV ONE (12:17)
[2020-12-01] MEDS ORDERED: fentaNYL (PF) 50 MCG/ML 2 ML AMP IV ONE (12:42)
[2020-12-01] MEDS ORDERED: MIDAZOLAM 2 MG/2 ML VIAL IV ONE (12:42)
--- NOTE | 2020-12-01 13:06 | P.ANPRN ---
Procedure Note - Anesthesia - Nerve Block Performed Left Supraclavicular Single Time Out Performed: Yes Date of Procedure: 12/01/20 Procedure Start Time: 12:41 Procedure Stop Time: 12:50 Location of Patient: PreOp Indication: Requested by Surgeon Specifically requested for management of pain by DrPatricia: Mamta Mariee Sedation Type: Sedate with meaningful contact maintained Preparation: Sterile Prep Position: Supine Needle Types: Pajunk Needle Gauge: 21 Ultrasound used to visualize needle placement: Yes Ultrasound used to observe medication spread: Yes Injectate: 0.5% Ropivacaine (see comment for volume) (20 ml plus dexamethason 4 mg) Blood Aspirated: No Pain Paresthesia on Injection Noted: No Resistance on Injection: Normal Image Stored and Saved: Yes Events: Uneventful and Well Tolerated
[2020-12-01] MEDS ORDERED: MIDAZOLAM 2 MG/2 ML VIAL ONE (13:17)
[2020-12-01] MEDS ORDERED: PROPOFOL 10 MG/ML 20 ML VIAL IV ONE (13:17)
[2020-12-01] MEDS ORDERED: KETAMINE 10 MG/ML 20 ML VIAL ONE (13:17)
[2020-12-01] MEDS ORDERED: fentaNYL (PF) 50 MCG/ML 2 ML AMP ONE (13:17)
[2020-12-01] MEDS ORDERED: HEPARIN SODIUM,PORCINE 5,000 UNIT/ML 1 ML VIAL ONE (13:17)
[2020-12-01] MEDS ORDERED: ROPIVACAINE 5 MG/ML 30 ML VIAL ONE (13:17)
[2020-12-01] MEDS ORDERED: DEXAMETHASONE SOD PHOSPHATE 4 MG/ML 1 ML VIAL ONE (13:17)
[2020-12-01] MEDS ORDERED: LIDOCAINE 1% INJ 10MG/ML (20 ML MDV) SQ ONE (13:41)
[2020-12-01] MEDS ORDERED: BUPIVACAINE (PF) 0.5% 30 ML VIAL SQ ONE (13:43)
[2020-12-01] MEDS ORDERED: HEPARIN SODIUM,PORCINE 2,000 UNIT in SODIUM CHLORIDE 0.9% 500 ML 500 ML IRRIGATION ONE (13:46)
[2020-12-01] MEDS ORDERED: ceFAZolin 2,000 MG in SODIUM CHLORIDE 0.9% 500 ML IRRIGATION ONE (14:04)
--- NOTE | 2020-12-01 14:46 | P.OP ---
Date of Procedure: 12/01/20 Description of Procedure: Preoperative diagnosis: Chronic kidney disease, need for dialysis Postoperative diagnosis: Same Procedure: [Left upper extremity brachial artery to cephalic vein fistula creation] Surgeon: Mamta Mariee D.O. Anesthesia: Regional block with monitored anesthesia care EBL: [20 mL] IV fluids: [See records] Urine output: [Not measured] Drains: [None] Complications: [None immediately apparent] Condition: [Stable to recovery] Operative indication and findings: [The patient is a 80-year-old female with chronic kidney disease he was recommended to have dialysis therefore an ultrasound was performed and she was found to have sizable cephalic and basilic veins bilaterally. A left upper extremity cephalic vein fistula creation was discussed. Risks and benefits were discussed. She seemingly understood and was willing to proceed as such. Procedure in detail: The patient was taken to the operative suite and placed in supine position. The left upper extremity is prepped and draped in standard fashion. A previous regional block had been performed. The ultrasound was uti lized and the brachial artery was identified as well as the cephalic vein and the median cubital vein. A transverse incision was made just proximal to the antecubital fossa. Incision was carried down to subcutaneous tissues and the level of the fascia. The fascia was opened and the brachial artery was identified. It was encircled proximally and distally. Attention was then turned towards the vein, the median cubital vein and area of the cephalic vein diving laterally was identified. It was dissected free. The patient was heparinized Proximally it was ligated with suture and transected. It was serially dilated and flushed with heparinized saline. An arteriotomy was created and enlarged with Jordan scissors. An anastomosis was created with 7-0 Prolene. Prior to completion of the anastomosis the vein was brought to back bleed. The artery was allowed to backbleeding. The anastomosis was completed. Flow was reinstituted through the artery flushing any debris through the fistula. Flow was resumed down through the distal artery. There was a multiphasic signals proximally and distally to the anastomosis at all sites as well as of the radial artery at the completion of the procedure. The area was irrigated. The subcutaneous tissues reapproximated with interrupted sutures of 3-0 Vicryl. The skin was reapproximated with running 4-0 Monocryl and skin glue was placed. The patient was allowed awaken from anesthesia and transferred to recovery in stable condition having tolerated the procedure well.] [] Plan - Discharge Summary Discharge Rx Participant: Yes New Discharge Prescriptions: No Action amLODIPine [Norvasc] 5 mg PO DAILY Ergocalciferol (Vitamin D2) [Drisdol (50,000 Iu)] 50,000 unit PO WE Apixaban [Eliquis] 2.5 mg PO BID Trospium Chloride 20 mg PO HS PRN PRN Reason: overactive bladder PARoxetine [Paxil] 40 mg PO DAILY Ipratropium/Albuter 20-100Mcg [Combivent Respimat 20-100Mcg Inhaler] 1 puff INHALATION RT-QID PRN PRN Reason: Dyspnea Metoprolol Succinate [Toprol XL] 50 mg PO DAILY Calcitriol [Rocaltrol] 0.25 mcg PO WE Furosemide [Lasix] 40 mg PO DAILY #30 tablet Discharge Medication List Apixaban [Eliquis] 2.5 mg PO BID 08/06/20 [History] Calcitriol [Rocaltrol] 0.25 mcg PO WE 08/06/20 [History] Ergocalciferol (Vitamin D2) [Drisdol (50,000 Iu)] 50,000 unit PO WE 08/06/20 [History] Ipratropium/Albuter 20-100Mcg [Combivent Respimat 20-100Mcg Inhaler] 1 puff INHALATION RT-QID PRN 08/06/20 [History] Metoprolol Succinate [Toprol XL] 50 mg PO DAILY 08/06/20 [History] PARoxetine [Paxil] 40 mg PO DAILY 08/06/20 [History] Trospium Chloride 20 mg PO HS PRN 08/06/20 [History] amLODIPine [Norvasc] 5 mg PO DAILY 08/06/20 [History] Furosemide [Lasix] 40 mg PO DAILY #30 tablet 08/07/20 [Rx] Patient Instructions/Handouts: *Surgery [facility] - (Anesthesia) Discharge Instructions Outpatient Surgery, Arteriovenous Fistula Creation for Hemodialysis (DC)
[2020-12-01 14:55] VITALS: PULSE 58
[2020-12-01 15:10] VITALS: BP 117/70; RESP 18
== END 2020-12-01 15:59 | disposition home or self-care (01) ==
LOC: OR 11:21
PROVIDERS: ATTEND Surgery
DX: I13.2 Hypertensive heart and chronic kidney disease with heart failure and with stage 5 chronic kidney disease, or end stage renal disease (principal); N18.6 End stage renal disease; I50.9 Heart failure, unspecified; Z99.2 Dependence on renal dialysis; I48.91 Unspecified atrial fibrillation; J43.9 Emphysema, unspecified; Z87.891 Personal history of nicotine dependence; Z98.891 History of uterine scar from previous surgery; Z98.890 Other specified postprocedural states; Z90.710 Acquired absence of both cervix and uterus; M19.90 Unspecified osteoarthritis, unspecified site; F41.9 Anxiety disorder, unspecified; Z79.899 Other long term (current) drug therapy; Z79.01 Long term (current) use of anticoagulants
CPT/HCPCS: 64415; 76942; 36821; J2250; J1644; J1100; J0690 ×2; J2405; J2001; J3010; J2795; J2704

== ENCOUNTER 2023-12-24 13:13 | Observation (INO) | payer MEDICARE ==
--- NOTE | 2023-12-24 13:33 | ED ---
SOB HPI - General Chief Complaint: Shortness of Breath Stated Complaint: MERI Time Seen by Provider: 12/24/23 13:32 Source: patient, family, RN notes reviewed Mode of arrival: wheelchair Limitations: no limitations - History of Present Illness Initial Comments: Patient is an 83-year-old female presenting to the ER with a chief complaint of shortness of breath. Patient sent here by PCP for IV Lasix. Patient states she has been having increasing shortness of breath since , about 4 days. She has a past medical history significant for atrial fibrillation for which she takes metoprolol and Eliquis. She states for the past 4 days she has been h aving an increase in exertional dyspnea, orthopnea and peripheral edema. No regular home O2 use. She states she normally sleeps on 1 pillow but for the past 4 days she has been having to sleep on 3. Patient is currently being worked up for dialysis as she has chronic kidney disease. Patient was seen by PCP earlier today and they were going to give her Lasix but they wanted to check renal function which brought her to the ER. Patient denies any chest pain, abdominal pain, constipation/diarrhea or urinary complaints. - Related Data Home Medications Medication Instructions Recorded Confirmed Apixaban [Eliquis] 2.5 mg PO BID 08/06/20 12/01/20 Ergocalciferol (Vitamin D2) 50,000 unit PO WE 08/06/20 12/01/20 [Drisdol (50,000 Iu)] Ipratropium/Albuter 20-100Mcg 1 puff INHALATION RT-QID PRN 08/06/20 12/01/20 [Combivent Respimat 20-100Mcg Inhaler] Metoprolol Succinate [Toprol XL] 50 mg PO DAILY 08/06/20 12/01/20 PARoxetine [Paxil] 40 mg PO DAILY 08/06/20 12/01/20 Trospium Chloride 20 mg PO HS PRN 08/06/20 12/01/20 amLODIPine [Norvasc] 5 mg PO DAILY 08/06/20 12/01/20 calcitrioL [Rocaltrol] 0.25 mcg PO WE 08/06/20 12/01/20 Previous Rx's Medication Instructions Recorded Furosemide [Lasix] 40 mg PO DAILY #30 tablet 08/07/20 HYDROcodone/APAP 5-325MG [[place] 1 tab PO Q4HR PRN 3 Days #18 tab 12/01/20 5-325] Allergies Allergy/AdvReac Type Severity Reaction Status Date / Time No Known Allergies Allergy Verified 12/24/23 13:25 Review of Systems ROS Statement: Those systems with pertinent positive or pertinent negative responses have been documented in the HPI. ROS Other: All systems not noted in ROS Statement are negative. Past Medical History Past Medical History: Atrial Flutter, Heart Failure, COPD, Hypertension, Osteoarthritis (OA), Renal Disease Additional Past Medical History / Comment(s): Stage 4 kidney disease, will be on dialysis in the future. Hx. of Atrial Flutter. History of Any Multi-Drug Resistant Organisms: None Reported Past Surgical History: Section, Hysterectomy, Orthopedic Surgery Additional Past Surgical History / Comment(s): cardioversion, arthroscopies ace knees Past Anesthesia/Blood Transfusion Reactions: No Reported Reaction Past Psychological History: Anxiety Smoking Status: Former smoker - Past Family History Brother(s) Family Medical History: Cancer General Exam - General Exam Comments Initial Comments: Visual Physical Exam Vital signs reviewed General: Well-appearing, nontoxic, no acute distress. Head: Normocephalic, atraumatic Eyes: PERRLA, EOMI ENT: Airway patent Chest: Nonlabored breathing Skin: No visual rash, normal skin tone Neuro: Alert and oriented 3 Musculoskeletal: No gross abnormalities Limitations: no limitations General appearance: alert, in no apparent distress Head exam: Present: atraumatic, normocephalic, normal inspection Eye exam: Present: normal appearance, PERRL, EOMI. Absent: scleral icterus, conjunctival injection, periorbital swelling ENT exam: Present: normal exam, mucous membranes moist Respiratory exam: Present: other (Diminished breath sounds bilaterally) Cardiovascular Exam: Present: regular rate, irregular rhythm, normal heart sounds GI/Abdominal exam: Present: soft, normal bowel sounds. Absent: distended, tenderness, guarding, rebound, rigid Neurological exam: Present: alert, oriented X3, CN II-XII intact Psychiatric exam: Present: normal affect, normal mood Skin exam: Present: warm, dry, intact, normal color, other (Bilateral lower extremities nonpitting edema bilaterally). Absent: rash Course Vital Signs 12/24/23 13:20 Temperature 97.6 F Pulse Rate 86 Respiratory 16 Rate Blood Pressure 119/73 O2 Sat by Pulse 96 Oximetry - Reevaluation(s) Reevaluation #1: 12/24/23 17:[address] Hughes who accepts medical admission. Medical Decision Making - Medical Decision Making I performed the quick note portion of this chart. Electronically signed by FAUSTINO MurilloC Was pt. sent in by a medical professional or institution (, [facility]HAEL, E[employer]ET[employer], urgent care, hospital, or alf...) When possible be specific @ -Yes, patient sent here from PCP for IV Lasix. Did you speak to anyone other than the patient for history (EMS, parent, family, police, friend...)? What history was obtained from this source @ -Daughter aiding in HPI. Did you review nursing and triage notes (agree or disagree)? Why? @ -I reviewed and agree with nursing and triage notes Were old charts reviewed (outside hosp., previous admission, EMS record, old EKG, old radiological studies, urgent care reports/EKG's, alf records)? Report findings @ -No old charts were reviewed Differential Diagnosis (chest pain, altered mental status, abdominal pain women, abdominal pain men, vaginal bleeding, weakness, fever, dyspnea, syncope, headache, dizziness, GI bleed, back pain, seizure, CVA, palpatations, mental health, musculoskeletal)? @ -Differential Dyspnea:Coronary syndrome, arrhythmia, tamponade, asthma, COPD, pulmonary embolism, pneumonia, pneumothorax, pulmonary effusion, anaphylaxis, di abetic ketoacidosis, flailed chest, pulmonary contusion, diaphragmatic rupture, anemia, neuromuscular, this is not meant to be an all-inclusive list. EKG interpreted by me (3pts min.). @ -As above X-rays interpreted by me (1pt min.). @ -Chest x-ray significant for COPD changes. Similar right perihilar fullness seen in 2019. No acute process. CT interpreted by me (1pt min.). @ -None done U/S interpreted by me (1pt. min.). @ -None done What testing was considered but not performed or refused? (CT, X-rays, U/S, labs)? Why? @ -None What meds were considered but not given or refused? Why? @ -None Did you discuss the management of the patient with other professionals (professionals i.e. , PA, EMAIL MARKETING INTERN, lab, RT, psych nurse, psychotherapist social worker, barrel filler, teacher, chief environmental commitment officer, human services case manager)? Give summary @ -Yes, case discussed with Dr. Hughes [facility], who accepts medical admission. Was smoking cessation discussed for >3mins.? @ -No Was critical care preformed (if so, how long)? @ -No Were there social determinants of health that impacted care today? How? (Homelessness, low income, unemployed, alcoholism, drug addiction, transportation, low edu. Level, literacy, decrease access to med. care, longterm, rehab)? @ -No Was there de-escalation of care discussed even if they declined (Discuss DNR or withdrawal of care, Hospice)? DNR status @ -No What co-morbidities impacted this encounter? (DM, HTN, Smoking, COPD, CAD, Cancer, CVA, ARF, Chemo, Hep., AIDS, mental health diagnosis, sleep apnea, morbid obesity)? @ -CKD, CHF, a fib Was patient admitted / discharged? Hospital course, mention meds given and route, prescriptions, significant lab abnormalities, going to OR and other pertinent info. @ -Admitted. patient is a 83 year old female presenting to the ER with a chief complaint of shortness of breath. History and physical exam completed. Vitals stable. Patient in no sign of acute distress and non toxic appearing. Diminished lung sounds bilaterally. Nonpitting edema to bilateral lower extremities. Labs obtained significant for potassium 5.3, BUN 51, creatinine 3.10, BNP 13,800. EKG significant for atrial fibrillation ventricular rate 72. Influenza, RSV, COVID-negative. Chest x-ray interpreted by me negative for acute cardiopulmonary process. Results discussed with patient, all questions answered. Admission considered for IV Lasix and cardiology consult. Case discussed with Dr. Hughes [facility], who accepts medical admission. Cardiology and nephrology on consult. Started IV lasix. Patient agreeable for admission. Patient admitted in stable condition for further treatment. Case discussed with ED attending, Dr. Veloz. Undiagnosed new problem with uncertain prognosis? @ -No Drug Therapy requiring intensive monitoring for toxicity (Heparin, Nitro, Insulin, Cardizem)? @ -No Were any procedures done? @ -No Diagnosis/symptom? @ -CHF/CKD Acute, or Chronic, or Acute on Chronic? @ -Acute on chronic Uncomplicated (without systemic symptoms) or Complicated (systemic symptoms)? @ -Complicated Side effects of treatment? @ -No Exacerbation, Progression, or Severe Exacerbation? @ -Yes Poses a threat to life or bodily function? How? (Chest pain, USA, SC, pneumonia, PE, COPD, DKA, ARF, appy, cholecystitis, CVA, Diverticulitis, Homicidal, Suicidal, threat to staff... and all critical care pts) @ -Yes, CHF can lead to hypoxia which is life-threatening. - Lab Data Result diagrams: 12/24/23 15:04 12/24/23 15:04 Lab Results 12/24/23 12/24/23 12/24/23 Range/Units 15:04 15:04 15:04 WBC 5.3 (3.8-10.6) k/uL RBC 4.03 (3.80-5.40) m/uL Hgb 11.9 (11.4-16.0) gm/dL Hct 38.0 (34.0-46.0) % MCV 94.3 (80.0-100.0) fL MCH 29.6 (25.0-35.0) pg MCHC 31.4 (31.0-37.0) g/dL RDW 13.2 (11.5-15.5) % Plt Count 197 (150-450) k/uL MPV 9.4 Neutrophils % 63 % Lymphocytes % 26 % Monocytes % 5 % Eosinophils % 3 % Basophils % 1 % Neutrophils # 3.3 (1.3-7.7) k/uL Lymphocytes # 1.4 (1.0-4.8) k/uL Monocytes # 0.3 (0-1.0) k/uL Eosinophils # 0.2 (0-0.7) k/uL Basophils # 0.0 (0-0.2) k/uL PT 10.1 (10.0-12.5) sec INR 0.9 (<1.2) APTT 25.4 (22.0-30.0) sec Sodium (137-145) mmol/L Potassium (3.5-5.1) mmol/L Chloride (98-107) mmol/L Carbon Dioxide (22-30) mmol/L Anion Gap mmol/L BUN (7-17) mg/dL Creatinine (0.52-1.04) mg/dL Est GFR (CKD-EPI)AfAm (>60 ml/min/1.73 sqM) Est GFR (CKD-EPI)NonAf (>60 ml/min/1.73 sqM) Glucose (74-99) mg/dL Plasma Lactic Acid Billy (0.7-2.0) mmol/L Calcium (8.4-10.2) mg/dL Magnesium (1.6-2.3) mg/dL Total Bilirubin (0.2-1.3) mg/dL AST (14-36) U/L ALT (4-34) U/L Alkaline Phosphatase (38-126) U/L Troponin I (0.000-0.034) ng/mL NT-Pro-B Natriuret Pep [employer] Total Protein (6.3-8.2) g/dL Albumin (3.5-5.0) g/dL Influenza Type A (PCR) (Not Detectd) Influenza Type B (PCR) (Not Detectd) RSV (PCR) (Not Detectd) SARS-CoV-2 (PCR) (Not Detectd) 12/24/23 12/24/23 12/24/23 Range/Units 15:04 15:04 15:04 WBC (3.8-10.6) k/uL RBC (3.80-5.40) m/uL Hgb (11.4-16.0) gm/dL Hct (34.0-46.0) % MCV (80.0-100.0) fL MCH (25.0-35.0) pg MCHC (31.0-37.0) g/dL RDW (11.5-15.5) % Plt Count (150-450) k/uL MPV Neutrophils % % Lymphocytes % % Monocytes % % Eosinophils % % Basophils % % Neutrophils # (1.3-7.7) k/uL Lymphocytes # (1.0-4.8) k/uL Monocytes # (0-1.0) k/uL Eosinophils # (0-0.7) k/uL Basophils # (0-0.2) k/uL PT (10.0-12.5) sec INR (<1.2) APTT (22.0-30.0) sec Sodium (137-145) mmol/L Potassium (3.5-5.1) mmol/L Chloride (98-107) mmol/L Carbon Dioxide (22-30) mmol/L Anion Gap mmol/L BUN (7-17) mg/dL Creatinine (0.52-1.04) mg/dL Est GFR (CKD-EPI)AfAm (>60 ml/min/1.73 sqM) Est GFR (CKD-EPI)NonAf (>60 ml/min/1.73 sqM) Glucose (74-99) mg/dL Plasma Lactic Acid Billy 1.0 (0.7-2.0) mmol/L Calcium (8.4-10.2) mg/dL Magnesium (1.6-2.3) mg/dL Total Bilirubin (0.2-1.3) mg/dL AST (14-36) U/L ALT (4-34) U/L Alkaline Phosphatase (38-126) U/L Troponin I <0.012 (0.000-0.034) ng/mL NT-Pro-B Natriuret Pep Total Protein (6.3-8.2) g/dL Albumin (3.5-5.0) g/dL Influenza Type A (PCR) Not Detected (Not Detectd) Influenza Type B (PCR) Not Detected (Not Detectd) RSV (PCR) Not Detected (Not Detectd) SARS-CoV-2 (PCR) Not Detected (Not Detectd) 12/24/23 12/24/23 Range/Units 15:04 16:08 WBC (3.8-10.6) k/uL RBC (3.80-5.40) m/uL Hgb (11.4-16.0) gm/dL Hct (34.0-46.0) % MCV (80.0-100.0) fL MCH (25.0-35.0) pg MCHC (31.0-37.0) g/dL RDW (11.5-15.5) % Plt Count (150-450) k/uL MPV Neutrophils % % Lymphocytes % % Monocytes % % Eosinophils % % Basophils % % Neutrophils # (1.3-7.7) k/uL Lymphocytes # (1.0-4.8) k/uL Monocytes # (0-1.0) k/uL Eosinophils # (0-0.7) k/uL Basophils # (0-0.2) k/uL PT (10.0-12.5) sec INR (<1.2) APTT (22.0-30.0) sec Sodium 139 (137-145) mmol/L Potassium 5.3 H (3.5-5.1) mmol/L Chloride 105 (98-107) mmol/L Carbon Dioxide 23 (22-30) mmol/L Anion Gap 11 mmol/L BUN 51 H (7-17) mg/dL Creatinine 3.10 H (0.52-1.04) mg/dL Est GFR (CKD-EPI)AfAm 16 (>60 ml/min/1.73 sqM) Est GFR (CKD-EPI)NonAf 14 (>60 ml/min/1.73 sqM) Glucose 103 H (74-99) mg/dL Plasma Lactic Acid Billy (0.7-2.0) mmol/L Calcium 9.4 (8.4-10.2) mg/dL Magnesium 2.1 (1.6-2.3) mg/dL Total Bilirubin 1.4 H (0.2-1.3) mg/dL AST 30 (14-36) U/L ALT 20 (4-34) U/L Alkaline Phosphatase 68 (38-126) U/L Troponin I (0.000-0.034) ng/mL NT-Pro-B Natriuret Pep 64278 Total Protein 8.5 H (6.3-8.2) g/dL Albumin 4.5 (3.5-5.0) g/dL Influenza Type A (PCR) (Not Detectd) Influenza Type B (PCR) (Not Detectd) RSV (PCR) (Not Detectd) SARS-CoV-2 (PCR) (Not Detectd) - EKG Data -: EKG Interpreted by Me EKG Comments: EKG taken at 15: 49 shows atrial fibrillation with no acute ST segment or T wave abnormalities. Ventricular rate 72, QRS duration 89, QT/QTc 382/406. - Radiology Data Radiology results: report reviewed, image reviewed Disposition Clinical Impression: CHF (congestive heart failure), CKD (chronic kidney disease) Disposition: ADMITTED IP TO THIS [facility] Condition: Good Referrals: Kavin French MD [Primary Care Provider] - 1-2 days Time of Disposition: 17:49
--- NOTE | 2023-12-24 14:42 | XR ---
EXAMINATION TYPE: XR chest 2V DATE OF EXAM: 12/24/2023 2:22 PM CLINICAL INDICATION:Female, 83 years old with history of difficulty breathing; PHH COMPARISON: None TECHNIQUE: XR chest 2V Frontal and lateral views of the chest. FINDINGS: Lungs/Pleura: There is flattening of the diaphragm with increased lucency of the lungs. No evidence o f pneumothorax, pleural effusion or focal consolidation. Pulmonary vascularity: Unremarkable. Heart/mediastinum: Cardiomediastinal silhouette is unremarkable. Musculoskeletal: No acute osseous pathology. Other findings: None IMPRESSION: 1. Similar right perihilar fullness seen dating back to 08/06/[address] of the right vascul ature. No acute cardiopulmonary disease process. 2. COPD changes.
[2023-12-24 15:27] LABS: Basophils % (A) 1 %; Eosinophils # (A) 0.2 k/uL (0-0.7); Eosinophils % (A) 3 %; HGB 11.9 gm/dL (11.4-16.0); Lymphocytes # (A) 1.4 k/uL (1.0-4.8); Lymphocytes % (A) 26 %; MCH 29.6 pg (25.0-35.0); MCHC 31.4 g/dL (31.0-37.0); MCV 94.3 fL (80.0-100.0); Mean Platelet Volume 9.4; Monocytes # (A) 0.3 k/uL (0-1.0); Monocytes % (A) 5 %; Neutrophils # (A) 3.3 k/uL (1.3-7.7); Neutrophils % (A) 63 %; Platelet Count 197 k/uL (150-450); RBC 4.03 m/uL (3.80-5.40); RDW 13.2 % (11.5-15.5); WBC 5.3 k/uL (3.8-10.6)
[2023-12-24 15:52] LABS: INR 0.9 (<1.2); Partial Thromboplastin Time 25.4 sec (22.0-30.0); Prothrombin Time 10.1 sec (10.0-12.5)
[2023-12-24 16:20] LABS: ALT 20 U/L (4-34); African American GFR (CKD) 16 (>60 ml/min/1.73 sqM); Anion Gap 11 mmol/L; Blood Urea Nitrogen 51 mg/dL (7-17); Calcium 9.4 mg/dL (8.4-10.2); Carbon Dioxide 23 mmol/L (22-30); Chloride 105 mmol/L (98-107); Glucose 103 mg/dL (74-99); Magnesium 2.1 mg/dL (1.6-2.3); Non-African American GFR(CKD) 14 (>60 ml/min/1.73 sqM); Sodium 139 mmol/L (137-145); Total Bilirubin 1.4 mg/dL (0.2-1.3)
[2023-12-24 16:52] LABS: AST 30 U/L (14-36); Alkaline Phosphatase 68 U/L (38-126); Potassium 5.3 mmol/L (3.5-5.1)
[2023-12-24 16:53] LABS: Albumin 4.5 g/dL (3.5-5.0); Total Protein 8.5 g/dL (6.3-8.2)
[2023-12-24] MEDS ORDERED: ACETAMINOPHEN TAB 325 MG TAB PO PRN (17:47)
[2023-12-24] MEDS ORDERED: NALOXONE 0.4 MG/ML 1 ML VIAL IV PRN (17:47)
[2023-12-24] MEDS: FUROSEMIDE 10 MG/ML 4 ML VIAL IV SCH (20:33)
[2023-12-25] MEDS: METOPROLOL SUCCINATE (ER) 50 MG TAB.ER.24H PO SCH (10:11)
[2023-12-25] MEDS: amLODIPine 10 MG TAB PO SCH (10:11)
[2023-12-25] MEDS: APIXABAN 2.5 MG TABLET PO SCH (10:11)
--- NOTE | 2023-12-25 12:21 | P.HPIM ---
History of Present Illness 83-year-old pleasant female came in with complaints of shortness of breath orthopnea, patient does have chronic diastolic dysfunction chronic atrial fibrillation. Patient is presently in A-fib on Eliquis. Patient is chronic kidney disease stage IV with baseline creatinine around 2.8 present creatinine is 3.5. Patient does not have any significant pedal edema. With chest x-ray suspicious for CHF and patient has highly elevated BNP of 13,500 patient was started on IV Lasix. Patient has been compliant with her Lasix but patient did cook this weekend which has significant salt and has been eating that for last few days. Does not use any oxygen at home patient is presently not requiring oxygen. Patient denied any chest pain nausea vomiting. REVIEW OF SYSTEMS: CONSTITUTIONAL: No fever, no malaise, no fatigue. HEENT: No recent visual problems or hearing problems. Denied any sore throat. CARDIOVASCULAR: No chest pain, no palpitations, no syncope. PULMONARY: no hemoptysis. GASTROINTESTINAL: No diarrhea, no nausea, no vomiting, no abdominal pain. NEUROLOGICAL: No headaches, no weakness, no numbness. HEMATOLOGICAL: Denies any bleeding or petechiae. GENITOURINARY: Denies any burning micturition, frequency, or urgency. MUSCULOSKELETAL/RHEUMATOLOGICAL: Denies any joint pain, swelling, or any muscle pain. ENDOCRINE: Denies any polyuria or polydipsia. The rest of the 14-point review of systems is negative. PHYSICAL EXAMINATION: GENERAL: The patient is alert and oriented x3, not in any acute distress. Well developed, well nourished. Obese HEENT: Pupils are round and equally reacting to light. EOMI. No scleral icterus. No conjunctival pallor. Normocephalic, atraumatic. No pharyngeal erythema. No thyromegaly. CARDIOVASCULAR: S1 and S2 present. No murmurs, rubs, or gallops. PULMONARY: Chest is clear to auscultation, no wheezing or crackles. ABDOMEN: Soft, nontender, nondistended, normoactive bowel sounds. No palpable organomegaly. MUSCULOSKELETAL: No joint swelling or deformity. EXTREMITIES: No cyanosis, clubbing, or pedal edema. NEUROLOGICAL: Gross neurological examination did not reveal any focal deficits. SKIN: No rashes. Assessment and plan -Congestive failure chronic diastolic function with acute exacerbation: Patient was started on IV Lasix will monitor input and output. -Chronic atrial fibrillation presently rate controlled patient is on Eliquis which will be resumed. -Chronic kidney disease stage IV with acute renal failure secondary to congestive heart failure expected to improve with IV Lasix nephrology is consulted as well -Hypertension patient was resumed on amlodipine -Primary osteoarthritis -Obesity DVT prophylaxis: Patient is on Eliquis which was resumed Past Medical History Past Medical History: Atrial Flutter, Heart Failure, COPD, Hypertension, Osteoarthritis (OA), Renal Disease Additional Past Medical History / Comment(s): Stage 4 kidney disease, will be on dialysis in the future. Hx. of Atrial Flutter. History of Any Multi-Drug Resistant Organisms: None Reported Past Surgical History: Section, Hysterectomy, Orthopedic Surgery Additional Past Surgical History / Comment(s): cardioversion, arthroscopies ace knees Past Anesthesia/Blood Transfusion Reactions: No Reported Reaction Past Psychological History: Anxiety Smoking Status: Former smoker Past Alcohol Use History: None Reported Additional Past Alcohol Use History / Comment(s): quit smoking >20 yrs. ago, smoked since teens on & off <ppd Past Drug Use History: None Reported - Past Family History Brother(s) Family Medical History: Cancer Medications and Allergies Home Medications Medication Instructions Recorded Confirmed Type Apixaban [Eliquis] 2.5 mg PO BID 08/06/20 12/24/23 History Metoprolol Succinate [Toprol XL] 50 mg PO DAILY 08/06/20 12/24/23 History PARoxetine [Paxil] 40 mg PO DAILY 08/06/20 12/24/23 History Trospium Chloride 20 mg PO HS PRN 08/06/20 12/24/23 History amLODIPine [Norvasc] 10 mg PO DAILY 08/06/20 12/24/23 History Furosemide [Lasix] 40 mg PO DAILY #30 tablet 08/07/20 12/24/23 Rx Allergies Allergy/AdvReac Type Severity Reaction Status Date / Time No Known Allergies Allergy Verified 12/24/23 18:05 Physical Exam Vitals: Vital Signs Temp Pulse Pulse Resp BP BP Pulse Ox 12/25/23 10:10 74 18 137/89 95 12/25/23 06:36 98.1 F 81 18 140/86 95 12/25/23 03:20 98.6 F 80 18 157/79 95 12/24/23 20:40 82 18 153/87 94 L 12/24/23 18:05 99 F 79 18 131/85 96 12/24/23 13:20 97.6 F 86 16 119/73 96 Intake and Output 12/24/23 12/25/23 12/25/23 22:59 06:59 14:59 Other: Weight 88.451 kg Results CBC & Chem 7: 12/24/23 15:04 12/24/23 15:04 Labs: Abnormal Lab Results - Last 24 Hours (Table) 12/24/23 Range/Units 15:04 Potassium 5.3 H (3.5-5.1) mmol/L BUN 51 H (7-17) mg/dL Creatinine 3.10 H (0.52-1.04) mg/dL Glucose 103 H (74-99) mg/dL Total Bilirubin 1.4 H (0.2-1.3) mg/dL Total Protein 8.5 H (6.3-8.2) g/dL
--- NOTE | 2023-12-25 12:38 | P.NPCON ---
History of Present Illness - Reason for Consult acute renal failure - History of Present Illness patient is an 83-year-old female with history of chronic diastolic CHF and chronic A. fib. Patient also has underlying chronic kidney disease NKF stage IV with baseline creatinine around 2.7 mg/dL. Patient is admitted to the hospital with complaints of shortness of breath and dyspnea on exertion.patient has also noticed increased lower extremity swelling. She did admit to increased salt containing fourth recently particularly have him on Easter. No history of fever chills nausea vomiting or diarrhea. No change in home dose of diuretics. chest x-ray does not document significant pulmonary vascular congestion in the report. blood pressure has not been low Currently maintained on IV Lasix. Past Medical History Past Medical History: Atrial Flutter, Heart Failure, COPD, Hypertension, Osteoarthritis (OA), Renal Disease Additional Past Medical History / Comment(s): Stage 4 kidney disease, will be on dialysis in the future. Hx. of Atrial Flutter. History of Any Multi-Drug Resistant Organisms: None Reported Past Surgical History: Section, Hysterectomy, Orthopedic Surgery Additional Past Surgical History / Comment(s): cardioversion, arthroscopies ace knees Past Anesthesia/Blood Transfusion Reactions: No Reported Reaction Past Psychological History: Anxiety Smoking Status: Former smoker Past Alcohol Use History: None Reported Additional Past Alcohol Use History / Comment(s): quit smoking >20 yrs. ago, smoked since teens on & off <ppd Past Drug Use History: None Reported - Past Family History Brother(s) Family Medical History: Cancer Medications and Allergies Home Medications Medication Instructions Recorded Confirmed Type Apixaban [Eliquis] 2.5 mg PO BID 08/06/20 12/24/23 History Metoprolol Succinate [Toprol XL] 50 mg PO DAILY 08/06/20 12/24/23 History PARoxetine [Paxil] 40 mg PO DAILY 08/06/20 12/24/23 History Trospium Chloride 20 mg PO HS PRN 08/06/20 12/24/23 History amLODIPine [Norvasc] 10 mg PO DAILY 08/06/20 12/24/23 History Furosemide [Lasix] 40 mg PO DAILY #30 tablet 08/07/20 12/24/23 Rx Allergies Allergy/AdvReac Type Severity Reaction Status Date / Time No Known Allergies Allergy Verified 12/24/23 18:05 Physical Exam Vitals: Vital Signs Temp Pulse Pulse Resp BP BP Pulse Ox 12/25/23 10:10 74 18 137/89 95 12/25/23 06:36 98.1 F 81 18 140/86 95 12/25/23 03:20 98.6 F 80 18 157/79 95 12/24/23 20:40 82 18 153/87 94 L 12/24/23 18:05 99 F 79 18 131/85 96 12/24/23 13:20 97.6 F 86 16 119/73 96 Intake and Output 12/24/23 12/25/23 12/25/23 22:59 06:59 14:59 Other: Weight 88.451 kg patient is awake, comfortable, no acute distress Examination of the heart S1 and S2 Examination of the lungs decreased breath sounds in the bases with basal crackles Abdomen is soft nontender Examination lower extremity shows 1+ edema bilaterally [employer] exam grossly intact Results - Lab Results Most recent lab results Calcium 9.4 mg/dL (8.4-10.2) 12/24/23 15:04 Magnesium 2.1 mg/dL (1.6-2.3) 12/24/23 15:04 12/24/23 15:04 12/24/23 15:04 Assessment and Plan Assessment: 1. Chronic kidney disease NKF stage IV with baseline creatinine around 2.7 mg/dL secondary to nephrosclerosis. 2. Acute kidney injury mostly cardiorenal, nonoliguric 3. Hypertension with underlying CK D stage IV 4. Volume overload 5. Acute on chronic diastolic CHF 6. Mild hyperkalemiaassociated with acute kidney injury Plan: continue to diurese patient Repeat labs in a.m. patient will need follow-up as outpatient in about 1-2 weeks post discharge Discussed salt and fluid restriction. Thank you for the consultation. We will continue to follow the patient with you during her hospitalization.
--- NOTE | 2023-12-25 13:50 | P.CRDCN ---
History of Present Illness Consult date: 12/25/23 Consult reason: congestive heart failure History of present illness: History of present illness: This is an 83-year-old female patient of Dr. Baig with past medical history of persistent atrial fibrillation on Eliquis, hypertension, dyspnea on exertion, chronic kidney disease stage IV. We have been asked to evaluate the patient for CHF. Patient gives history that she has been sleeping on 2-3 pillows at night and increasing shortness of breath with activity since last . She denies any recent medication changes and no sick contacts. She has very little lower extremity edema and normally has none. She denies have any chest pain, no lightheadedness or dizziness. She states it is gotten to the point that she cannot walk down her hallway without shortness of breath. She states she sits down and recovers in a few minutes. She has been started on IV Lasix 40 mg and has received 2 doses but patient states she is not feeling any better. She states she usually urinates quite a bit with her oral diuretics at home. Patient has been started on IV Lasix 40 mg twice daily. Patient is seen today in the emergency center waiting for bed on the [facility] floor. EKG atrial fibrillation with ventricular rate of 72 bpm. Chest x-ray: Similar right perihilar fullness seen dating back to 08/06/2020. No acute cardiopulmonary disease process. COPD changes. CBC, INR within normal limits. Sodium 139, potassium 4.3, BUN 51 creatinine 3.1. Blood sugar 103. Lactic acid 1. Magnesium 2.1. Total bilirubin 1.4 otherwise liver function test are within normal limits. Troponin negative x 1. proBNP 13,800. Influenza A, influenza B, RSV, COVID-19 not detected. Home cardiac medications: Amlodipine 10 mg daily, Eliquis 2.5 mg twice daily, Lasix 40 mg daily, metoprolol succinate 50 mg daily. Synchronized biphasic cardioversion performed on 10/14/[address] Baig for atrial fibrillation. Echocardiogram performed in the office on 02/26/2023 revealed EF of 52%, mild MR, mild TR. Lexiscan stress test performed in 2019 revealed normal EF, normal study. Review Of Systems: At the time of my exam: CONSTITUTIONAL: Denies fever or chills. HEENT: Denies blurred vision, vision changes, or eye pain. Denies hemoptysis CARDIOVASCULAR: Denies chest pain. Denies orthopnea. Denies PND. Denies palpitations RESPIRATORY: Denies shortness of breath. Reports dyspnea on exertion. GASTROINTESTINAL: Denies abdominal pain. Denies nausea or vomiting. HEMATOLOGIC: Denies bleeding disorders. GENITOURINARY: Denies any blood in urine. SKIN: Denies pruitis. Denies rash. Physical examination: Gen: This is an 83-year-old female in no acute distress. VS: reviewed blood pressure 140/86, heart rate 81, pulse ox 95% on room air, afebrile. HEENT: Head is atraumatic, normocephalic. Pupils equal, round. Sclerae is anicteric. NECK: Supple. No JVD. LUNGS: Bilateral air entry. No intercostal retractions. HEART: Regular rate and rhythm. 2/6 systolic ejection murmur at the base. ABDOMEN: Soft No tenderness. EXTREMITIES: Minimal pedal edema. No calf tenderness. NEUROLOGICAL: Patient is awake, alert and oriented x3. Assessment: Acute on chronic diastolic heart failure Persistent atrial fibrillation Hypertension Chronic kidney disease stage IV Plan: Resume patient's home cardiac medications Increase frequency of IV Lasix 40 mg to every 8 hours Monitor BLAS, daily weights, electrolytes and renal function No need to repeat echocardiogram Further recommendations to follow based upon clinical course Thank you kindly for this consultation. Nurse practitioner note has been reviewed, I agree with documented findings and plan of care. Patient was seen and examined. Past Medical History Past Medical History: Atrial Flutter, Heart Failure, COPD, Hypertension, Osteoarthritis (OA), Renal Disease Additional Past Medical History / Comment(s): Stage 4 kidney disease, will be on dialysis in the future. Hx. of Atrial Flutter. History of Any Multi-Drug Resistant Organisms: None Reported Past Surgical History: Section, Hysterectomy, Orthopedic Surgery Additional Past Surgical History / Comment(s): cardioversion, arthroscopies ace knees Past Anesthesia/Blood Transfusion Reactions: No Reported Reaction Past Psychological History: Anxiety Smoking Status: Former smoker Past Alcohol Use History: None Reported Additional Past Alcohol Use History / Comment(s): quit smoking >20 yrs. ago, smoked since teens on & off <ppd Past Drug Use History: None Reported - Past Family History Brother(s) Family Medical History: Cancer Medications and Allergies Home Medications Medication Instructions Recorded Confirmed Type Apixaban [Eliquis] 2.5 mg PO BID 08/06/20 12/24/23 History Metoprolol Succinate [Toprol XL] 50 mg PO DAILY 08/06/20 12/24/23 History PARoxetine [Paxil] 40 mg PO DAILY 08/06/20 12/24/23 History Trospium Chloride 20 mg PO HS PRN 08/06/20 12/24/23 History amLODIPine [Norvasc] 10 mg PO DAILY 08/06/20 12/24/23 History Furosemide [Lasix] 40 mg PO DAILY #30 tablet 08/07/20 12/24/23 Rx Allergies Allergy/AdvReac Type Severity Reaction Status Date / Time No Known Allergies Allergy Verified 12/24/23 18:05 Physical Exam Vitals: Vital Signs Temp Pulse Resp BP Pulse Ox 12/25/23 06:36 98.1 F 81 18 140/86 95 12/25/23 03:20 98.6 F 80 18 157/79 95 12/24/23 20:40 82 18 153/87 94 L 12/24/23 18:05 99 F 79 18 131/85 96 12/24/23 13:20 97.6 F 86 16 119/73 96 Intake and Output 12/24/23 12/25/23 12/25/23 22:59 06:59 14:59 Other: Weight 88.451 kg Results 12/24/23 15:04 12/24/23 15:04 Cardiac Enzymes 12/24/23 12/24/23 Range/Units 15:04 15:04 AST 30 (14-36) U/L Troponin I <0.012 (0.000-0.034) ng/mL Coagulation 12/24/23 Range/Units 15:04 PT 10.1 (10.0-12.5) sec APTT 25.4 (22.0-30.0) sec CBC 12/24/23 Range/Units 15:04 WBC 5.3 (3.8-10.6) k/uL RBC 4.03 (3.80-5.40) m/uL Hgb 11.9 (11.4-16.0) gm/dL Hct 38.0 (34.0-46.0) % Plt Count 197 (150-450) k/uL Comprehensive Metabolic Panel 12/24/23 Range/Units 15:04 Sodium 139 (137-145) mmol/L Potassium 5.3 H (3.5-5.1) mmol/L Chloride 105 (98-107) mmol/L Carbon Dioxide 23 (22-30) mmol/L BUN 51 H (7-17) mg/dL Creatinine 3.10 H (0.52-1.04) mg/dL Glucose 103 H (74-99) mg/dL Calcium 9.4 (8.4-10.2) mg/dL AST 30 (14-36) U/L ALT 20 (4-34) U/L Alkaline Phosphatase 68 (38-126) U/L Total Protein 8.5 H (6.3-8.2) g/dL Albumin 4.5 (3.5-5.0) g/dL Current Medications Generic Name Dose Route Start Last Admin Trade Name Freq PRN Reason Stop Dose Admin Acetaminophen 650 mg 12/24/23 17:47 Acetaminophen Tab 325 Mg Tab PO Q6HR PRN Mild Pain or Fever > 100.5 Furosemide 40 mg 12/24/23 21:00 12/25/23 07:48 Furosemide 10 Mg/Ml 4 Ml Vial IV 40 mg BID RORY Administration Naloxone HCl 0.2 mg 12/24/23 17:47 Naloxone 0.4 Mg/Ml 1 Ml Vial IV Q2M PRN Opioid Reversal Intake and Output 12/24/23 12/25/23 12/25/23 22:59 06:59 14:59 Other: Weight 88.451 kg Patient Weight 12/26/23 06:59 Weight 88.451 kg 12/24/23 15:04 12/24/23 15:04
[2023-12-25] MEDS: FUROSEMIDE 10 MG/ML 4 ML VIAL IV SCH (14:48)
[2023-12-25] MEDS: PARoxetine 20 MG TAB PO SCH (14:48)
[2023-12-26 08:41] LABS: BUN/Creat Ratio 15.26 Ratio (12.00-20.00); Blood Urea Nitrogen 53.4 mg/dL (9.0-27.0); Calcium 8.7 mg/dL (8.7-10.3); Carbon Dioxide 24.9 mmol/L (21.6-31.8); Chloride 102 mmol/L (96-109); Glucose 91 mg/dL (70-110); Magnesium 2.1 mg/dL (1.5-2.4); Potassium 4.3 mmol/L (3.5-5.5); Sodium 141 mmol/L (135-145)
--- NOTE | 2023-12-26 10:18 | P.PN ---
Subjective Progress Note Date: 12/26/23 Consult reason: congestive heart failure History of present illness: History of present illness: This is an 83-year-old female patient of Dr. Baig with past medical history of persistent atrial fibrillation on Eliquis, hypertension, dyspnea on exertion, chronic kidney disease stage IV. We have been asked to evaluate the patient for CHF. Patient gives history that she has been sleeping on 2-3 pillows at night and increasing shortness of breath with activity since last . She denies any recent medication changes and no sick contacts. She has very little lower extremity edema and normally has none. She denies have any chest pain, no lightheadedness or dizziness. She states it is gotten to the point that she cannot walk down her hallway without shortness of breath. She states she sits down and recovers in a few minutes. She has been started on IV Lasix 40 mg and has received 2 doses but patient states she is not feeling any better. She states she usually urinates quite a bit with her oral diuretics at home. Patient has been started on IV Lasix 40 mg twice daily. Patient is seen today in the emergency center waiting for bed on the [facility] floor. EKG atrial fibrillation with ventricular rate of 72 bpm. Chest x-ray: Similar right perihilar fullness seen dating back to 08/06/2020. No acute cardiopulmonary disease process. COPD changes. CBC, INR within normal limits. Sodium 139, potassium 4.3, BUN 51 creatinine 3.1. Blood sugar 103. Lactic acid 1. Magnesium 2.1. Total bilirubin 1.4 otherwise liver function test are within normal limits. Troponin negative x 1. proBNP 13,800. Influenza A, influenza B, RSV, COVID-19 not detected. Home cardiac medications: Amlodipine 10 mg daily, Eliquis 2.5 mg twice daily, Lasix 40 mg daily, metoprolol succinate 50 mg daily. Synchronized biphasic cardioversion performed on 10/14/[address] Baig for atrial fibrillation. Echocardiogram performed in the office on 02/26/2023 revealed EF of 52%, mild MR, mild TR. Lexiscan stress test performed in 2019 revealed normal EF, normal study. 12/25 [facility]. Yesterday, we increase Lasix 40 mg daily frequency to every 8 hours. Patient states that she has been urinating quite a bit. She feels that her breathing is better. Blood pressure 109/73, heart rate 63, pulse ox 90% on room air. Repeat blood work reveals sodium 141, potassium 4.3, BUN 53 creatinine 3.5. Physical examination: Gen: This is an 83-year-old female in no acute distress. VS: reviewed blood pressure 140/86, heart rate 81, pulse ox 95% on room air, afebrile. HEENT: Head is atraumatic, normocephalic. Pupils equal, round. Sclerae is anicteric. NECK: Supple. No JVD. LUNGS: Bilateral air entry. No intercostal retractions. HEART: Regular rate and rhythm. 2/6 systolic ejection murmur at the base. ABDOMEN: Soft No tenderness. EXTREMITIES: no pedal edema. No calf tenderness. NEUROLOGICAL: Patient is awake, alert and oriented x3. Assessment: Acute on chronic diastolic heart failure Persistent atrial fibrillation Hypertension Chronic kidney disease stage IV Plan: Continue patient's home cardiac medications Transition IV Lasix to home dose of Lasix 40 mg daily Monitor BLAS, daily weights, electrolytes and renal function Patient is cleared for discharge from cardiology and may follow-up with Dr. Baig in 1 to 2 weeks. Nurse practitioner note has been reviewed, I agree with documented findings and plan of care. Patient was seen and examined. Objective - Vital Signs Vital signs: Vital Signs Temp 98.4 F 12/26/23 08:00 Pulse 63 12/26/23 08:00 Resp 16 12/26/23 08:00 BP 109/73 12/26/23 08:00 Pulse Ox 90 L 12/26/23 08:00 FiO2 Intake & Output 12/25/23 12/26/23 12/26/23 18:59 06:59 18:59 Weight 88.451 kg 88.5 kg Other: # Voids 1 5 - Labs CBC & Chem 7: 12/24/23 15:04 12/26/23 05:17
--- NOTE | 2023-12-26 12:37 | P.PN ---
Subjective patient is seen for follow-up for chronic kidney disease and volume overload. She has been diuresed. patient states she is feeling much better. Serum creatinine slightly higher at 3.5. Objective - Vital Signs Vital signs: Vital Signs Temp 98.4 F 12/26/23 08:00 Pulse 63 12/26/23 08:00 Resp 16 12/26/23 08:00 BP 109/73 12/26/23 08:00 Pulse Ox 90 L 12/26/23 08:00 FiO2 Intake & Output 12/25/23 12/26/23 12/26/23 18:59 06:59 18:59 Weight 88.451 kg 88.5 kg Other: # Voids 1 5 - Exam patient is awake, comfortable, no acute distress Examination of the heart S1 and S2 Examination of the lungs decreased breath sounds in the bases with basal crackles Abdomen is soft nontender Examination lower extremity shows 1+ edema bilaterally DISTRIBUTION SPEC exam grossly intact - Labs CBC & Chem 7: 12/24/23 15:04 12/26/23 05:17 Labs: Abnormal Lab Results - Last 24 Hours (Table) 12/26/23 Range/Units 05:17 Anion Gap 14.10 H (4.00-12.00) mmol/L BUN 53.4 H (9.0-27.0) mg/dL Creatinine 3.5 H (0.6-1.5) mg/dL Est GFR (CKD-EPI) 13 L (>=60) Assessment and Plan Assessment: 1. Chronic kidney disease NKF stage IV with baseline creatinine around 2.7 mg/dL secondary to nephrosclerosis. 2. Acute kidney injury mostly cardiorenal, nonoliguric 3. Hypertension with underlying CK D stage IV 4. Volume overload 5. Acute on chronic diastolic CHF 6. Mild hyperkalemia associated with acute kidney injury Plan: okay to discharge patient. discussed salt restriction. increase Lasix to 40 mg twice a day for a few days post discharge and then resume to daily after 3-4 days. Follow-up as outpatient in 1-2 weeks.
[2023-12-26 15:12] VITALS: BP 111/77; PULSE 88; RESP 18; TEMP 98.1
[2023-12-27] MEDS ORDERED: FUROSEMIDE 40 MG TAB PO SCH (09:00)
--- NOTE | 2023-12-28 06:52 | P.DS ---
Providers Date of admission: 12/24/23 17:28 Expected date of discharge: 12/26/23 Attending physician: Gonzalez Hughes Consults: 12/24/23 17:47 Consult Physician Urgent Consulting Provider: Mary Baig Consult Reason/Comments: CHF Do you want consulting provider notified?: Yes Consult Physician Urgent Consulting Provider: Angelique Hillman Consult Reason/Comments: CKD Do you want consulting provider notified?: Yes Primary care physician: Kavin French MD Hospital Course: Final diagnosis -Congestive failure chronic diastolic function with acute exacerbation -Chronic atrial fibrillation presently rate controlled patient is on Eliquis -Chronic kidney disease stage IV with acute renal failure secondary to congestive heart failure -Hypertension -Primary osteoarthritis -Obesity -DVT prophylaxis -GI prophylaxis -Full code Discharge disposition Patient is being discharged in a stable condition with guarded prognosis to home. Patient will follow-up with Dr. French in the outpatient setting upon discharge. Patient is to continue with Lasix and close outpatient follow-up with cardiology as well as nephrology as scheduled. Total time taken is greater than 35 minutes. Hospital course This is a 83-year-old female who was recently admitted with CHF exacerbation. Patient maintained on IV diuresis being followed by cardiology as well as nephrology as patient has chronic kidney disease current creatinine is 3.5. Patient follows with nephrology outpatient regarding the need for possible renal replacement and has not required it yet although does have a left AV fistula. Patient reports to feeling significantly improved and would like to go home. Patient has been cleared by consultations. Please refer to consultation notes for further HPI. Currently no reports of chest pain, shortness of breath, or palpitations. Patient is afebrile. No reports of nausea or vomiting and patient is tolerating diet. Patient will be discharged home today. Physical exam: Gen: This is a 83-year-old female who is awake, alert and oriented x 3, well- developed, well-nourished, obese, elderly appearing HEENT: Head is atraumatic, normocephalic. Pupils equal, round. Sclerae is anicteric. NECK: Supple. No JVD. No lymphadenopathy. No thyromegaly. LUNGS: Diminished breath sounds bilaterally otherwise clear to auscultation. No wheezes or rhonchi. No intercostal retractions. HEART: S1, S2 are muffled ABDOMEN: Soft. Obese bowel sounds are present. No masses. No tenderness. EXTREMITIES: No pedal edema. No calf tenderness. Bilateral lower extremity edema noted NEUROLOGICAL: Patient is awake, alert and oriented x3. Cranial nerves 2 through 12 are grossly intact. Please refer to medication reconciliation sheet for a list of medications. The impression and plan of care has been dictated by Leslie Arevalo, Nurse Practitioner as directed. Dr. Maik MD I have performed a history and examination and MDM of this patient, discussed the same with the dictator, and agree with the dictator's assessment and plan as written ,documented as a scribe. Based on total visit time, I have performed more than 50% of the visit. Patient Condition at Discharge: Good Plan - Discharge Summary New Discharge Prescriptions: New Acetaminophen Tab [Tylenol] 650 mg PO Q6HR PRN tab PRN Reason: Mild Pain Or Fever > 100.5 Continue amLODIPine [Norvasc] 10 mg PO DAILY Apixaban [Eliquis] 2.5 mg PO BID Trospium Chloride 20 mg PO HS PRN PRN Reason: overactive bladder PARoxetine [Paxil] 40 mg PO DAILY Metoprolol Succinate [Toprol XL] 50 mg PO DAILY Furosemide [Lasix] 40 mg PO DAILY #30 tablet Discharge Medication List Apixaban [Eliquis] 2.5 mg PO BID 08/06/20 [History] Metoprolol Succinate [Toprol XL] 50 mg PO DAILY 08/06/20 [History] PARoxetine [Paxil] 40 mg PO DAILY 08/06/20 [History] Trospium Chloride 20 mg PO HS PRN 08/06/20 [History] amLODIPine [Norvasc] 10 mg PO DAILY 08/06/20 [History] Furosemide [Lasix] 40 mg PO DAILY #30 tablet 08/07/20 [Rx] Acetaminophen Tab [Tylenol] 650 mg PO Q6HR PRN tab 12/26/23 [Rx] Follow up Appointment(s)/Referral(s): Mary Baig MD [STAFF PHYSICIAN] - 01/14/24 4:15 pm Kavin French MD [Primary Care Provider] - 1-2 days Patient Instructions/Handouts: Heart Failure (DC), Chronic Kidney Disease (DC), Leg Edema (ED), Low-Sodium Diet (DC) Activity/Diet/Wound Care/Special Instructions: Activity limited until follow-up Follow-up with primary care provider on discharge Follow-up with cardiology in 1 to 2 weeks Continue taking medications as prescribed Discharge Disposition: HOME SELF-CARE
== END 2023-12-26 15:47 | disposition home or self-care (01) ==
LOC: EC 13:13 → 4SSUR 17:28
PROVIDERS: ADMIT Hospitalist; ATTEND Hospitalist
DX: I13.0 Hypertensive heart and chronic kidney disease with heart failure and stage 1 through stage 4 chronic kidney disease, or unspecified chronic kidney disease (principal); I50.33 Acute on chronic diastolic (congestive) heart failure; E87.5 Hyperkalemia; I48.19 Other persistent atrial fibrillation; N18.4 Chronic kidney disease, stage 4 (severe); N17.9 Acute kidney failure, unspecified; M19.90 Unspecified osteoarthritis, unspecified site; E66.9 Obesity, unspecified; Z11.52 Encounter for screening for COVID-19; F41.9 Anxiety disorder, unspecified; Z79.01 Long term (current) use of anticoagulants; Z87.891 Personal history of nicotine dependence; Z79.899 Other long term (current) drug therapy
CPT/HCPCS: 96376 ×2; 96374; 99285; 36415; 93005; 83880; 80053; 80048; 83605; 83735 ×2; 84484; 85025; 85610; 85730; 87636; 71046; G0378 ×3; J1940 ×3